=== PATIENT | male | born 1935 | race African-American/Black ===

== ENCOUNTER 2017-08-05 21:27 | Inpatient (IN) | payer OTHER, MEDICARE ==
[~2017-08-05] VITALS: Ht 193 cm; Wt 137.9 kg
[~2017-08-05 21:27] MED LIST: ALDA25TA PO; FURO1TAB93 PO
[2017-08-05 21:29] VITALS: BP 135/60; PULSE 86; RESP 16; TEMP 98.4; O2SAT 96
[2017-08-05 22:40] VITALS: BP 137/63
[2017-08-05] MEDS ORDERED: LISI10TA3 PO (22:47)
[2017-08-05] MEDS ORDERED: SPIR25 PO (22:47)
[2017-08-05] MEDS ORDERED: FURO40TA PO (22:47)
--- NOTE | 2017-08-05 23:08 | PD ---
HPI Chief Complaint: General Weakness Time Seen by Provider: 22:38 Travel History International Travel<30 days: No Contact w/Intl Traveler<30days: No Traveled to known affect area: No History of Present Illness HPI The patient is an 82 year old male who presents to the [facility] emergency department with a history of chronic swelling of the lower extremities and recurrent areas of ulceration in bilateral lower extremities that he reports it been present for the last 3-4 months. His family member reports that he only mentions that he has wounds when they become infected. Yesterday he began to complain of increased pain, swelling, and drainage from the wounds. Yesterday he began to have a subjective fever and chills. He has had increased generalized weakness associated with this. He reports that over the last 3-4 days he has also been experiencing diarrhea approximately 2 times per day. He denies having any nausea or vomiting. In review of systems he denies having any chest pain or chest pressure. He does report having chronic dyspnea on exertion. He denies having any prior history of respiratory disease diagnosed. He reports that he quit smoking 30 years of age. Otherwise, review of systems , he denies any recent cough or congestion, neck pain, abdominal pain, or neurologic symptoms. The patient additionally reports on review of systems that he has had urinary frequency and urgency over the last 4 days. He denies having any dysuria. He denies having any new back pain. 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 Arthritis: Yes (RIGHT KNEE) Autoimmune Disease: No Heart Rhythm Problems: No Cancer: No Cardiovascular Problems: Yes High Cholesterol: No Chemotherapy: No Chest Pain: No Congestive Heart Failure: No COPD: Yes Cerebrovascular Accident: No Diabetes: No Diminished Hearing: No Endocrine: No GERD: No Genitourinary: Yes (MILD INCONTINENCE) Hiatal Hernia: No Hypertension: Yes Immune Disorder: No Kidney Stones: No Musculoskeletal: Yes Neurologic: No Psychiatric: No Reproductive: No Respiratory: No Immunizations Current: No Migraines: No Radiation Therapy: No Renal Failure: No Seizures: No Sickle Cell Disease: No Thyroid Disease: No Ulcer: No Tetanus Vaccination: Unknown Influenza Vaccination: No Past Surgical History Narrative Surgical The patient's past surgical history is significant for dental extractions, prostate surgery related to prostate cancer, appendectomy, left knee surgery, back surgery. Abdominal Surgery: Yes (APPENDIX REMOVED) AICD: No Appendectomy: Yes Arteriovenous Shunt: No Cardiac Surgery: No Ear Surgery: No Endocrine Surgery: No Eye Surgery: No Genitourinary Surgery: Yes (PROSTATE MASS REMOVAL) Gynecologic Surgery: No Insulin Pump: No Joint Replacement: No Oral Surgery: Yes (DENTURES) Pacemaker: No Thoracic Surgery: No Social History Alcohol Use: No Tobacco Use: No Substance Use: No Allergies-Medications (Allergen,Severity, Reaction): Coded Allergies: No Known Allergies (Unverified , 08/05/17) Reported Meds & Prescriptions Reported Meds & Active Scripts Active Reported Lisinopril 10 Mg Tab 10 Mg PO DAILY Furosemide 40 Mg Tab 40 Mg PO DAILY Aldactone (Spironolactone) 25 Mg Tab 25 Mg PO DAILY Review of Systems Except as stated in HPI: all other systems reviewed are Neg General / Constitutional: Positive: Fever, Chills Eyes: No: Visual changes HENT: No: Headaches, Congestion Cardiovascular: Positive: Dyspnea on exertion, Edema, No: Chest Pain or Discomfort Respiratory: Positive: Shortness of Breath, No: Cough Gastrointestinal: Positive: Diarrhea, No: Abdominal Pain Genitourinary: Positive: Urgency, Frequency, No: Dysuria, Flank Pain Musculoskeletal: No: Pain Skin: Positive Rash Neurologic: Positive: Weakness (generalized weakness), No: Focal Abnormalities , Change in Mentation, Slurred Speech, Sensory Disturbance Psychiatric: No: Depression Endocrine: No: Polydipsia Hematologic/Lymphatic: No: Easy Bruising Physical Exam Narrative General: The patient is well-developed well-nourished male in no acute distress Head and Neck exam: Head is normocephalic atraumatic. Eyes: EOMI, pupils are equal round and reactive to light. Nose: Midline septum with pink mucous membranes Mouth: Dentition unremarkable. Moist mucus membranes. Posterior oropharynx is not erythematous. No tonsillar hypertrophy. Uvula midline. Airway patent. Neck: No palpable lymphadenopathy. No nuchal rigidity. No thyromegaly. Cardiovascular: Sinus tachycardia with a rate of 106 without murmurs, gallops, or rubs. No pulse deficit to the extremities on simultaneous auscultation and palpation of his radial artery. Lungs: Clear to auscultation bilaterally. No wheezes, rhonchi, or rales. Abdomen: Soft, without tenderness to palpation in all 4 quadrants of the abdomen. No guarding, rebound, or rigidity. Normal bowel sounds are audible. No tenderness on palpation of McBurney's point. Extremities: No clubbing or cyanosis, patient has 2+ pitting edema bilateral lower extremities. 2+ pulses in all 4 extremities. The patient is noted to have bandages in place on bilateral lower extremities below the knee. The bandages were removed. The patient is noted to have areas of ulceration along the lateral and posterior aspect of the right leg with some clear drainage. The patient on examination of the left lower extremity is noted to have an area of ulceration with green drainage and a foul odor along the medial aspect of the lower leg. The right lower extremity is noted to have increased swelling compared to the left with some extending erythema proximally consistent with a cellulitis. Back: No spinous process tenderness to palpation. No costovertebral angle tenderness to palpation. Neurologic Exam: Grossly nonfocal. Skin Exam: The patient's skin is warm and dry. Data Data Last Documented VS Vital Signs Date Time Temp Pulse Resp B/P (MAP) Pulse Ox O2 Delivery O2 Flow Rate FiO2 08/05/17 22:40 137/63 (87) 08/05/17 22:40 107 21 96 Room Air 08/05/17 21:29 98.4 Orders Orders Electrocardiogram (08/05/17 22:41) Complete Blood Count With Diff (08/05/17 22:41) Comprehensive Metabolic Panel (08/05/17 22:41) Creatine Kinase (Cpk) (08/05/17 22:41) Ckmb (Isoenzyme) Profile (08/05/17 22:41) Troponin I (08/05/17 22:41) B-Type Natriuretic Peptide (08/05/17 22:41) Prothrombin Time / Inr (Pt) (08/05/17 22:41) Act Partial Throm Time (Ptt) (08/05/17 22:41) Blood Culture (08/05/17 22:41) C-Reactive Protein (Crp) (08/05/17 22:41) Lipase (08/05/17 22:41) Urinalysis - C+S If Indicated (08/05/17 22:41) Chest, Single Ap (08/05/17 22:41) Iv Access Insert/Monitor (08/05/17 22:41) Ecg Monitoring (08/05/17 22:41) Oximetry (08/05/17 22:41) Lactic Acid Sepsis Protocol (08/05/17 22:41) Wound Culture And Gram Stain (08/05/17 23:09) Wound Culture And Gram Stain (08/05/17 23:09) CKMB (08/05/17 23:00) CKMB% (08/05/17 23:00) Sodium Chlor 0.9% 1000 Ml Inj (Ns 1000 M (08/06/17 00:45) Piperacil-Tazo 3.375 Gm Premix (Zosyn 3. (08/06/17 00:45) Vancomycin Inj (Vancomycin Inj) (08/06/17 00:45) Admit Order (Ed Use Only) (08/06/17 00:42) Labs Laboratory Tests Test 08/05/17 23:00 White Blood Count 14.2 TH/MM3 Red Blood Count 4.23 MIL/MM3 Hemoglobin 11.8 GM/DL Hematocrit 35.7 % Mean Corpuscular Volume 84.4 FL Mean Corpuscular Hemoglobin 27.8 PG Mean Corpuscular Hemoglobin Concent 33.0 % Red Cell Distribution Width 16.5 % Platelet Count 173 TH/MM3 Mean Platelet Volume 8.3 FL CBC Comment AUTO DIFF Differential Total Cells Counted 100 Neutrophils % (Manual) 75 % Band Neutrophils % 6 % Lymphocytes % 8 % Monocytes % 9 % Neutrophils # (Manual) 11.8 TH/MM3 Metamyelocytes 2 % Differential Comment FINAL DIFF MANUAL Atypical Lymphocytes % Toxic Vacuolation PRESENT Platelet Estimate NORMAL Platelet Morphology Comment NORMAL Red Cell Morphology Comment NORMAL Prothrombin Time 13.2 SEC Prothromb Time International Ratio 1.2 RATIO Activated Partial Thromboplast Time 38.1 SEC Blood Urea Nitrogen 20 MG/DL Creatinine 2.14 MG/DL Random Glucose 129 MG/DL Total Protein 8.4 GM/DL Albumin 2.8 GM/DL Calcium Level 8.8 MG/DL Alkaline Phosphatase 100 U/L Aspartate Amino Transf (AST/SGOT) 37 U/L Alanine Aminotransferase (ALT/SGPT) 23 U/L Total Bilirubin 2.9 MG/DL Sodium Level 134 MEQ/L Potassium Level 3.7 MEQ/L Chloride Level 99 MEQ/L Carbon Dioxide Level 25.0 MEQ/L Anion Gap 10 MEQ/L Estimat Glomerular Filtration Rate 36 ML/MIN Lactic Acid Level 1.9 mmol/L Total Creatine Kinase 502 U/L Creatine Kinase MB 4.0 NG/ML Creatine Kinase MB % 0.8 % Troponin I LESS THAN 0.02 NG/ML C-Reactive Protein 24.00 MG/DL B-Type Natriuretic Peptide 177 PG/ML Lipase 78 U/L MDM Medical Decision Making Medical Screen Exam Complete: Yes Emergency Medical Condition: Yes Medical Record Reviewed: Yes Interpretation(s) Last Impressions Lower Extremity Ultrasound 08/06/17 0000 Signed Impressions: Service Date/Time: Sunday, August 06, 2017 17:41 - CONCLUSION: No DVT is identified within the right lower extremity. Quintin Bro MD Chest X-Ray 08/05/17 2241 Signed Impressions: Service Date/Time: Saturday, August 05, 2017 22:58 - CONCLUSION: 1. Minimal basilar atelectasis. Theodore Rivera MD Differential Diagnosis Cellulitis, versus erysipelas, versus infected ulcers, versus sepsis Narrative Course During the course of the patients emergency department visit, the patients history, examination, and differential diagnosis were reviewed with the patient. The patient had IV access obtained and blood work sent for analysis. The patient was placed on a operations general agent with oximetry and blood pressure monitoring. The patient had an ECG done on arrival that shows a sinus tachycardia rate of 103, incomplete right bundle branch block, QRS duration is 104 ms, QTC 370 ms, no acute ST segment elevation or depression. A Workup ensued to evaluate for possible underlying sepsis related cellulitis. The patient was initially provided Zosyn 3.375 g IV, vancomycin 1 g IV, normal saline 1 L IV fluid bolus was started. The patients laboratory studies were reviewed and remarkable for a white count of 14.2, hemoglobin 11.8, platelets 173 with 75 neutrophils, bands 6, toxic vacuolation present. CMP is remarkable for a sodium of 134, BUN 20, creatinine 2.14 which is compared to previous values last done in 2012 and appears to be acutely worsened, CPK 502, MB percent 0.8, troponin I less than 0.02, C- reactive protein elevated at 24, lipase 78, BNP 177. Given the elevated BNP the patient was judiciously hydrated and stated being given the usual 30 mL per KG IV fluid bolus due to a concern for fluid overload. PT 13.2, PTT 38.1, urinalysis is remarkable for 100 protein moderate occult blood small bilirubin 7 RBCs and rare uric acid crystals. Radiology studies were reviewed and remarkable for a Chest x-ray showed minimal Basilar atelectasis. Sepsis Criteria SIRS Criteria (2 or more): Heart rate over 90, WBC > 88696, < 4000 or > 10% bands Sepsis Criteria (SIRS+source): Infect source susp/known Criteria Outcome: Meets SIRS criteria, Meets sepsis criteria Physician Communication Physician Communication The patient's case was discussed with Dr. Nicholson who did agree to admit the patient for further evaluation and treatment at this time. Diagnosis Primary Impression: Recurrent cellulitis of lower extremity Additional Impression: Acute kidney injury superimposed on chronic kidney disease Admitting Information Admitting Physician Requests: Admit Zahraa Pickering MD Aug 05, 2017 23:08
--- NOTE | 2017-08-05 23:12 | RADRPT ---
EXAM DATE/TIME: 08/05/2017 22:58 [facility] COMPARISON: No previous studies available for comparison. INDICATIONS : Short of breath, chest pain. MEDICAL HISTORY : None. SURGICAL HISTORY : None. ENCOUNTER: Initial ACUITY: 1 day PAIN SCORE: 0/10 LOCATION: Bilateral chest FINDINGS: A single view of the chest demonstrates minimal basilar opacity most characteristic of atelectasis. N o effusion. No pneumothorax. No focal consolidation. CONCLUSION: 1. Minimal basilar atelectasis. Theodore Rivera MD on August 05, 2017 at 23:08 Board Certified Radiologist. This report was verified electronically.
[2017-08-05 23:17] LABS: HEMATOCRIT 35.7 % (39.0-51.0); HEMO FLAGS AUTO DIFF; MEAN CELL VOLUME 84.4 FL (80.0-100.0); MEAN CORPUSCULAR HEMOGLOBIN 27.8 PG (27.0-34.0); PLATELET COUNT 173 TH/MM3 (150-450); RED BLOOD COUNT 4.23 MIL/MM3 (4.50-5.90); RED CELL DISTRIBUTION WIDTH 16.5 % (11.6-17.2); WHITE BLOOD COUNT 14.2 TH/MM3 (4.0-11.0)
[2017-08-05 23:27] LABS: APTT (PATIENT) 38.1 SEC (24.3-30.1); INTERNATIONAL NORMALIZED RATIO 1.2 RATIO; PROTHROMBIN TIME - PATIENT 13.2 SEC (9.8-11.6)
[2017-08-05 23:31] LABS: ANION GAP 10 MEQ/L (5-15); AST (GOT) 37 U/L (15-37); BLOOD UREA NITROGEN 20 MG/DL (7-18); CHLORIDE 99 MEQ/L (98-107); GLOMERULAR FILTRATION RATE 36 ML/MIN (>89); POTASSIUM 3.7 MEQ/L (3.5-5.1); SODIUM (NA) 134 MEQ/L (136-145)
[2017-08-05 23:32] LABS: ALT (GPT) 23 U/L (12-78)
[2017-08-05 23:39] LABS: ALKALINE PHOSPHATASE 100 U/L (45-117); CREATINE KINASE 502 U/L (39-308); TOTAL BILIRUBIN ADULT 2.9 MG/DL (0.2-1.0)
[2017-08-05 23:54] LABS: BANDS 6 % (0-6); METAMYELOCYTES 2 % (0-1); NEUTROPHIL # MANUAL DIFF 11.8 TH/MM3 (1.8-7.7); PLATELET ESTIMATE SMEAR NORMAL (NORMAL); PLATELET MORPHOLOGY NORMAL (NORMAL); POLYS (SEG NEUTROPHILS) 75 % (16-70); SCAN/DIFF FINAL DIFF MANUAL; WBC DIFF SAMPLE 100
[2017-08-05 23:55] LABS: TOXIC VACUOLATION PRESENT (NONE SEEN)
[2017-08-06] VITALS (9 sets, daily range): BP systolic 118–148; BP diastolic 56–65; PULSE 85–104; RESP 16–20; TEMP 98.1–99.4; O2SAT 93–100
[2017-08-06] MEDS ORDERED: SODIUM CHLOR 0.9% 1000 ML INJ 1,000 ML IV ONE (00:45)
[2017-08-06] MEDS ORDERED: PIPERACIL-TAZO 3.375 GM PREMIX 50 ML IV ONE (00:45)
[2017-08-06] MEDS ORDERED: VANCOMYCIN INJ 1,000 MG in SODIUM CHLOR 0.9% 250 ML INJ 250 ML IV ONE ×2 (00:45→02:00)
[2017-08-06] MEDS ORDERED: SODIUM CHLORIDE 0.9% FLUSH 10 ML FLUSH IV FLUSH PRN (01:00)
[2017-08-06] MEDS ORDERED: LACTULOSE SYRUP 20 GM/30 ML CUP PO PRN (01:00)
[2017-08-06] MEDS ORDERED: NALOXONE HCL 0.4 MG/ML AMP IV PUSH PRN (01:00)
[2017-08-06] MEDS ORDERED: ONDANSETRON HCL 4 MG/2 ML VIAL IVP PRN (01:00)
[2017-08-06] MEDS ORDERED: BISACODYL 10 MG SUPP RECTAL PRN (01:00)
[2017-08-06] MEDS ORDERED: SENNOSIDES 8.6 MG TAB PO PRN (01:00)
[2017-08-06] MEDS ORDERED: ACETAMINOPHEN 325 MG TAB PO PRN (01:00)
[2017-08-06] MEDS ORDERED: MAGNESIUM HYDROXIDE SUSP 30 ML CUP PO PRN (01:00)
[2017-08-06] MEDS ORDERED: Vancomycin Consult Pharmacy 1 EA OTHER SCH (01:15)
--- NOTE | 2017-08-06 03:23 | HHI.HP ---
[facility] Unknown Admission Diagnosis Cellulitis with infected skin ulcers Diagnoses: Chief Complaint: Lower extremity infection Travel History International Travel<30 Days: No Contact w/Intl Traveler <30 Da: No Traveled to Known Affected Are: No History of Present Illness 82-year-old male with a medical history significant for osteoarthritis, prostate cancer, hypertension, chronic lower extremity edema presents with complaint of infection involving bilateral lower extremities. Patient is a very poor historian and not able to elaborate on the history. He reports he normally gets these infections once a year. He does not follow with a primary care physician. He reports that they just have been getting worse. He is experiencing significant pain with walking. There has been erythema and warmth. Subjective fevers at home. He states his legs have been swelling intermittently. Patient denies shortness of breath or chest pain. Review of Systems Constitutional: COMPLAINS OF: Fever, Chills Respiratory: DENIES: Cough, Shortness of breath Gastrointestinal: DENIES: Abdominal pain, Nausea, Vomiting Musculoskeletal: COMPLAINS OF: Joint pain, Stiffness Integumentary: COMPLAINS OF: Abnormal pigmentation, Rash Except as stated in HPI: all other systems reviewed are Neg Past Family Social History Past Medical History Hypertension Osteoarthritis Prostate cancer Bilateral chronic lower extremity edema/venous stasis changes. Past Surgical History Appendectomy Prostate cancer surgery Left knee surgery Back surgery Reported Medications Reported Meds & Active Scripts Active Reported Lisinopril 10 Mg Tab 10 Mg PO DAILY Furosemide 40 Mg Tab 40 Mg PO DAILY Aldactone (Spironolactone) 25 Mg Tab 25 Mg PO DAILY Allergies: Coded Allergies: No Known Allergies (Unverified , 08/05/17) Family History Mother from complications of pancreatic cancer Father had lung cancer Physical Exam Vital Signs Vital Signs Date Time Temp Pulse Resp B/P (MAP) Pulse Ox O2 Delivery O2 Flow Rate FiO2 08/06/17 03:17 08/06/17 03:00 85 16 148/65 (92) 95 Room Air 08/06/17 02:00 99 18 128/60 (82) 95 Room Air 08/05/17 22:40 137/63 (87) 08/05/17 22:40 107 21 96 Room Air 08/05/17 21:29 98.4 86 16 135/60 (85) 96 Room Air Physical Exam GENERAL: This is a well-nourished, well-developed patient, in no apparent distress. SKIN: Bilateral lower extremity venous stasis changes. On the right lower extremity days extending erythema and warmth. Multiple shallow ulcers involving bilateral lower extremities. No purulent discharge. Bilateral feet with extensive callus and chronic changes. HEAD: Atraumatic. Normocephalic. EYES: Pupils equal round and reactive. Extraocular motions intact. No scleral icterus. No injection or drainage. ENT: Nose without bleeding, purulent drainage or septal hematoma. Throat without erythema, tonsillar hypertrophy or exudate. Uvula midline. Airway patent. NECK: Trachea midline. No JVD or lymphadenopathy. Supple, nontender, no meningeal signs. CARDIOVASCULAR: Regular rate and rhythm without murmurs, gallops, or rubs. RESPIRATORY: Clear to auscultation. Breath sounds equal bilaterally. No wheezes , rales, or rhonchi. GASTROINTESTINAL: Abdomen soft, non-tender, nondistended. No hepato-splenomegaly , or palpable masses. No guarding. MUSCULOSKELETAL: Extremities without clubbing, cyanosis, or edema. No joint tenderness, effusion, or edema noted. No calf tenderness. Negative Homans sign bilaterally. NEUROLOGICAL: Awake and alert. Normal speech. Laboratory Laboratory Tests Test 08/05/17 23:00 White Blood Count 14.2 Red Blood Count 4.23 Hemoglobin 11.8 Hematocrit 35.7 Mean Corpuscular Volume 84.4 Mean Corpuscular Hemoglobin 27.8 Mean Corpuscular Hemoglobin Concent 33.0 Red Cell Distribution Width 16.5 Platelet Count 173 Mean Platelet Volume 8.3 CBC Comment AUTO DIFF Differential Total Cells Counted 100 Neutrophils % (Manual) 75 Band Neutrophils % 6 Lymphocytes % 8 Monocytes % 9 Neutrophils # (Manual) 11.8 Metamyelocytes 2 Differential Comment FINAL DIFF MANUAL Atypical Lymphocytes Toxic Vacuolation PRESENT Platelet Estimate NORMAL Platelet Morphology Comment NORMAL Red Cell Morphology Comment NORMAL Prothrombin Time 13.2 Prothromb Time International Ratio 1.2 Activated Partial Thromboplast Time 38.1 Blood Urea Nitrogen 20 Creatinine 2.14 Random Glucose 129 Total Protein 8.4 Albumin 2.8 Calcium Level 8.8 Alkaline Phosphatase 100 Aspartate Amino Transf (AST/SGOT) 37 Alanine Aminotransferase (ALT/SGPT) 23 Total Bilirubin 2.9 Sodium Level 134 Potassium Level 3.7 Chloride Level 99 Carbon Dioxide Level 25.0 Anion Gap 10 Estimat Glomerular Filtration Rate 36 Lactic Acid Level 1.9 Total Creatine Kinase 502 Creatine Kinase MB 4.0 Creatine Kinase MB % 0.8 Troponin I LESS THAN 0.02 C-Reactive Protein 24.00 B-Type Natriuretic Peptide 177 Lipase 78 Date/Time Source Procedure Growth Status 08/05/17 23:00 Blood Peripheral Aerobic Blood Culture Pending Received 08/05/17 23:00 Blood Peripheral Anaerobic Blood Culture Pending Received 08/05/17 22:50 Wound Skin Gram Stain Pending Received 08/05/17 22:50 Wound Skin Wound Culture Pending Received Result Diagram: 08/[id number] Imaging Last Impressions Chest X-Ray 08/05/[id number] Signed Impressions: Service Date/Time: Saturday, August 05, 2017 22:58 - CONCLUSION: 1. Minimal basilar atelectasis. Theodore Rivera MD [place] VTE Risk Assessment Caprini VTE Risk Assessment: Mod/High Risk (score >= 2) Caprini Risk Assessment Model Point Value = 1 Point Value = 2 Point Value = 3 Point Value = 5 Age 41-60 Minor surgery BMI > 25 kg/m2 Swollen legs Varicose veins or History of unexplained or recurrent spontaneous Oral contraceptives or hormone replacement Sepsis (< 1 month) Serious lung disease, including pneumonia (< 1 month) Abnormal pulmonary function Acute myocardial infarction Congestive heart failure (< 1 month) History of inflammatory bowel disease Medical patient at bed rest Age 61-74 Arthroscopic surgery Major open surgery (> 45 min) Laparoscopic surgery (> 45 min) Malignancy Confined to bed (> 72 hours) Immobilizing plaster cast Central venous access Age >= 75 History of VTE Family history of VTE Factor V Leiden Prothrombin [id number] Lupus anticoagulant Anticardiolipin antibodies Elevated serum homocysteine Heparin-induced thrombocytopenia Other congenital or acquired thrombophilia Stroke (< 1 month) Elective arthroplasty Hip, pelvis, or leg fracture Acute spinal cord injury (< 1 month) Prophylaxis Regimen Total Risk Factor Score Risk Level Prophylaxis Regimen 0-1 Low Early ambulation 2 Moderate Order ONE of the following: *Sequential Compression Device (SCD) *Heparin 5000 units SQ BID 3-4 Higher Order ONE of the following medications: *Heparin 5000 units SQ TID *Enoxaparin/Lovenox 40 mg SQ daily (WT < 150 kg, CrCl > 30 mL/min) *Enoxaparin/Lovenox 30 mg SQ daily (WT < 150 kg, CrCl > 10-29 mL/min) *Enoxaparin/Lovenox 30 mg SQ BID (WT < 150 kg, CrCl > 30 mL/min) AND/OR *Sequential Compression Device (SCD) 5 or more Highest Order ONE of the following medications: *Heparin 5000 units SQ TID (Preferred with Epidurals) *Enoxaparin/Lovenox 40 mg SQ daily (WT < 150 kg, CrCl > 30 mL/min) *Enoxaparin/Lovenox 30 mg SQ daily (WT < 150 kg, CrCl > 10-29 mL/min) *Enoxaparin/Lovenox 30 mg SQ BID (WT < 150 kg, CrCl > 30 mL/min) AND *Sequential Compression Device (SCD) Assessment and Plan Problem List: (1) Venous stasis dermatitis of both lower extremities ICD Code: I87.2 - Venous insufficiency (chronic) (peripheral) (2) Recurrent cellulitis of lower extremity ICD Code: L03.119 - Cellulitis of unspecified part of limb (3) Acute kidney injury superimposed on chronic kidney disease ICD Code: N17.9 - Acute kidney failure, unspecified; N18.9 - Chronic kidney disease, unspecified Assessment and Plan 82-year-old male admitted with: Recurrent bilateral lower extremity cellulitis: The patient has significant venous stasis and has multiple nondraining skin ulcers. He does not follow with a regular physician. - Continue vancomycin and Zosyn. Follow cultures. - Consult wound care. The patient needs adequate outpatient follow-up to ensure the wounds are healing. Acute on chronic renal insufficiency: May be prerenal azotemia. - IV fluids ordered. - Follow BMP in a.m. Hypertension: Blood pressure acceptable currently. Hold lisinopril, spironolactone, and Lasix. Monitor blood pressure and resume antihypertensives as indicated. GI prophylaxis: Stool softener PRN constipation. DVT PPx: Heparin Depending on how the patient does overnight. Wound care recommendations, he can likely be discharged tomorrow on oral antibiotics with outpatient follow-up in the wound care clinic. Discussed Condition With Dr. Pickering, ED physician. Bonifacio Nicholson MD Aug 06, 2017 03:23
[2017-08-06 04:05] LABS: BLOOD, URINE MOD (NEG); COMMENT (UR) CULT NOT INDICATED; CULTURE IF INDICATED CULT NOT INDICATED; GLUCOSE,URINE NEG (NEG); HYALINE CAST, URINE 19 /lpf (RARE); KETONE, URINE NEG (NEG); MUCUS URINE FEW /lpf (OCC); NITRITE,URINE NEG (NEG); PH, URINE 5.5 (5.0-8.5); SQUAMOUS EPITHELIAL CELL URINE <1 /hpf (0-5); URINE COLOR YELLOW (YELLW/STRAW)
[2017-08-06 04:10] LABS: URIC ACID CRYSTALS, URINE RARE /hpf
[2017-08-06 05:19] LABS: HEMATOCRIT 33.9 % (39.0-51.0); MEAN CELL VOLUME 84.8 FL (80.0-100.0); MEAN CORPUSCULAR HEMOGLOBIN 27.6 PG (27.0-34.0); MEAN CORPUSCULAR HGB CONC 32.6 % (32.0-36.0); PLATELET COUNT 156 TH/MM3 (150-450); RED BLOOD COUNT 3.99 MIL/MM3 (4.50-5.90); RED CELL DISTRIBUTION WIDTH 16.7 % (11.6-17.2)
[2017-08-06 05:23] LABS: HEMO FLAGS AUTO DIFF
[2017-08-06 05:37] LABS: BICARBONATE 25.6 MEQ/L (21.0-32.0)
[2017-08-06 07:26] LABS: BANDS 1 % (0-6); NEUTROPHIL # MANUAL DIFF 12.1 TH/MM3 (1.8-7.7); POLYS (SEG NEUTROPHILS) 92 % (16-70); WBC DIFF SAMPLE 100
[2017-08-06 07:27] LABS: TOXIC VACUOLATION PRESENT (NONE SEEN)
[2017-08-06 07:29] LABS: OVALOCYTES 1+ (NORMAL); SCAN/DIFF FINAL DIFF MANUAL
[2017-08-06] MEDS: PIPERACIL-TAZO 3.375 GM PREMIX 50 ML IV SCH ×2 (08:09→16:07)
[2017-08-06] MEDS: HEPARIN SODIUM - SQ 10,000 UNITS/ML VIAL SQ SCH (08:09)
[2017-08-06] MEDS: SODIUM CHLORIDE 0.9% FLUSH 10 ML FLUSH IV FLUSH SCH (08:09)
[2017-08-06] MEDS: SODIUM CHLOR 0.9% 1000 ML INJ 1,000 ML IV SCH (12:43)
--- NOTE | 2017-08-06 13:04 | HHI.PR ---
Subjective Remarks Follow-up for right lower extremity cellulitis. RN at bedside. The patient states his right lower extremity has been having worsening swelling and pain recently, still has some discomfort today. He has been getting home wound care for his lower extremities. He states he had a recent culture done which showed MRSA. He has been having poor appetite and nausea today, no vomiting or abdominal pain. Objective Vitals Vital Signs Date Time Temp Pulse Resp B/P (MAP) Pulse Ox O2 Delivery O2 Flow Rate FiO2 08/06/17 10:58 98.7 99 16 139/57 (84) 94 08/06/17 08:54 99.1 100 18 126/57 (80) 97 08/06/17 08:19 85 132/60 (84) 08/06/17 03:55 98.4 94 20 118/59 (78) 100 08/06/17 03:17 08/06/17 03:00 85 16 148/65 (92) 95 Room Air 08/06/17 02:00 99 18 128/60 (82) 95 Room Air 08/05/17 22:40 137/63 (87) 08/05/17 22:40 107 21 96 Room Air 08/05/17 21:29 98.4 86 16 135/60 (85) 96 Room Air I/O 08/05/17 08/05/17 08/05/17 08/06/17 08/06/17 08/06/17 07:00 15:00 23:00 07:00 15:00 23:00 Intake Total 1350 ml Balance 1350 ml Intake IV Total 1350 ml Result Diagram: 08/06/17 0450 08/06/17 0450 Imaging Last Impressions Chest X-Ray 08/05/17 2241 Signed Impressions: Service Date/Time: Saturday, August 05, 2017 22:58 - CONCLUSION: 1. Minimal basilar atelectasis. Theodore Rivera MD Objective Remarks GENERAL: Well-developed well-nourished. In no acute distress. SKIN: Warm and dry. Bilateral lower extremity venous stasis changes, dry skin with cracking and dry ulcerations. Cellulitis as below. HEENT: Normocephalic. Pupils equal and round. Mucous membranes pink and moist. CARDIOVASCULAR: Regular rate and rhythm. No murmur appreciated. RESPIRATORY: No accessory muscle use. Clear to auscultation. Breath sounds equal bilaterally. GASTROINTESTINAL: Abdomen soft, non-tender, nondistended. Bowel sounds x4. MUSCULOSKELETAL: Right lower extremity much more swollen than the left with erythema and warmth. Right leg calf TTP. NEUROLOGICAL: Awake and alert. No focal neurological deficits. Moves upper and lower extremities spontaneously. Normal speech. PSYCHIATRIC: Appropriate mood and affect; insight and judgment normal. A/P Problem List: (1) Venous stasis dermatitis of both lower extremities ICD Code: I87.2 - Venous insufficiency (chronic) (peripheral) Status: Chronic (2) Recurrent cellulitis of lower extremity ICD Code: L03.119 - Cellulitis of unspecified part of limb Status: Acute (3) Acute kidney injury superimposed on chronic kidney disease ICD Code: N17.9 - Acute kidney failure, unspecified; N18.9 - Chronic kidney disease, unspecified Status: Acute Assessment and Plan 82-year-old male admitted with: Acute right lower extremity cellulitis on chronic bilateral lymphedema. Possible sepsis: The patient has significant venous stasis and has multiple nondraining skin ulcers. Reports outpatient wound culture with MRSA. Reviewed: WBC 14.2/13.0. Afebrile. Tachycardic. Previous cultures from 2011 showed pansensitive MSSA and pseudomonas. - Continue vancomycin and Zosyn. Follow wound and blood cultures. - Consult wound care. - Consult ID - Check Doppler to rule out DVT - Follow up CBC Acute on chronic renal insufficiency: Creatinine 2.14, previously 1.33 on . Received 1 L IVF and creatinine still 2.18. Probably secondary to infection and overdiuresis. - Resume IVF - Hold medications as below - Follow BMP in a.m. Hypertension: Blood pressure acceptable currently. Hold lisinopril, spironolactone, and Lasix with TIP. - Monitor blood pressure and resume antihypertensives as indicated. GI prophylaxis: Stool softener PRN constipation. DVT prophylaxis: Castillo Valencia Aug 06, 2017 13:04
--- NOTE | 2017-08-06 14:16 | EKG ---
Date Performed: 08/05/2017 Time Performed: 23:21:35 PTAGE: 82 years EKG: SINUS TACHYCARDIA POSSIBLE LEFT ATRIAL ENLARGEMENT INCOMPLETE RIGHT BUNDLE BRANCH BLOCK ABN ORMAL RHYTHM ECG Compared to prior tracing no significant change PREVIOUS TRACING : 06/12/2012 09.58 DOCTOR: Dannie Garcia Interpretating Date/Time 08/06/2017 14:15:03
--- NOTE | 2017-08-06 18:15 | RADRPT ---
EXAM DATE/TIME: 08/06/2017 17:41 [facility] COMPARISON: No previous studies available for comparison. INDICATIONS : Right leg pain and swelling. MEDICAL HISTORY : Hypertension. Chronic obstructive pulmonary disease. Arthritis. Chronic lower extremity edema with recurrent ulceration and cellulitis. Prostate cancer. Measles. SURGICAL HISTORY : Appendectomy. Dentures. Back surgery. Hand surgery. Left knee surgery. Prostate mass removed ENCOUNTER: Initial ACUITY: 4 - 6 months PAIN SCORE: 5/10 LOCATION: Right leg. TECHNIQUE: Venous ultrasound of the leg was performed from the inguinal ligament to the proximal calf. Real-qing e, color Doppler and spectral tracing, compression and augmentation techniques were used. FINDINGS: There is normal compressibility of the deep venous system from the inguinal region to the proximal ca lf. No echogenic clot is seen in the lumen of the common femoral, femoral, popliteal, and posterior tibial veins. There is a normal response of the venous system to proximal and distal augmentation an d respiration. There are multiple lymph nodes identified in the right inguinal region. CONCLUSION: No DVT is identified within the right lower extremity. Quintin Bro MD on August 06, 2017 at 18:13 Board Certified Radiologist. This report was verified electronically.
[2017-08-07] VITALS (7 sets, daily range): BP systolic 121–151; BP diastolic 60–71; PULSE 87–98; RESP 16–20; TEMP 97.6–98.9; O2SAT 91–96
[2017-08-07] MEDS: PIPERACIL-TAZO 3.375 GM PREMIX 50 ML IV SCH ×4 (02:06→23:21)
[2017-08-07] MEDS: SODIUM CHLORIDE 0.9% FLUSH 10 ML FLUSH IV FLUSH SCH ×3 (02:06→20:09)
[2017-08-07] MEDS: HEPARIN SODIUM - SQ 10,000 UNITS/ML VIAL SQ SCH ×3 (02:07→20:09)
[2017-08-07] MEDS: SODIUM CHLOR 0.9% 1000 ML INJ 1,000 ML IV SCH ×2 (02:07→03:38)
[2017-08-07 08:27] LABS: HEMATOCRIT 33.5 % (39.0-51.0); MEAN CELL VOLUME 84.8 FL (80.0-100.0); MEAN CORPUSCULAR HEMOGLOBIN 27.8 PG (27.0-34.0); MEAN CORPUSCULAR HGB CONC 32.8 % (32.0-36.0); PLATELET COUNT 161 TH/MM3 (150-450); RED BLOOD COUNT 3.96 MIL/MM3 (4.50-5.90); RED CELL DISTRIBUTION WIDTH 16.8 % (11.6-17.2); WHITE BLOOD COUNT 15.4 TH/MM3 (4.0-11.0)
[2017-08-07 08:31] LABS: HEMO FLAGS AUTO DIFF
[2017-08-07 08:49] LABS: BICARBONATE 27.3 MEQ/L (21.0-32.0); POTASSIUM 3.9 MEQ/L (3.5-5.1)
--- NOTE | 2017-08-07 09:04 | HHI.PR ---
Subjective Remarks The patient says that he has been taking diuretics. He also has been drinking a lot of water. He has not been using his compression stockings regularly. He has been following up with his primary care. He would like something for pain control. Family at the bedside. Objective Vitals Vital Signs Date Time Temp Pulse Resp B/P (MAP) Pulse Ox O2 Delivery O2 Flow Rate FiO2 08/07/17 08:16 98.5 90 20 121/60 (80) 94 08/07/17 04:00 98.1 96 16 122/61 (81) 95 08/07/17 00:00 98.9 98 18 132/63 (86) 95 08/06/17 22:00 98.1 98 19 133/60 (84) 93 08/06/17 20:00 103 08/06/17 17:24 99.4 104 18 123/56 (78) 96 08/06/17 10:58 98.7 99 16 139/57 (84) 94 I/O 08/06/17 08/06/17 08/06/17 08/07/17 08/07/17 08/07/17 07:00 15:00 23:00 07:00 15:00 23:00 Intake Total 1350 ml 480 ml 2240 ml Output Total 850 ml Balance 1350 ml 480 ml 1390 ml Intake Oral 480 ml 940 ml IV Total 1350 ml 1300 ml Output Urine Total 850 ml # Voids 2 3 # Bowel Movements 2 0 Result Diagram: 08/07/17 0745 08/07/17 0745 Imaging Last Impressions Lower Extremity Ultrasound 08/06/17 0000 Signed Impressions: Service Date/Time: Sunday, August 06, 2017 17:41 - CONCLUSION: No DVT is identified within the right lower extremity. Quintin Bro MD Chest X-Ray 08/05/17 2241 Signed Impressions: Service Date/Time: Saturday, August 05, 2017 22:58 - CONCLUSION: 1. Minimal basilar atelectasis. Theodore Rivera MD Objective Remarks GENERAL: Well-developed well-nourished. In no acute distress. SKIN: Warm and dry. Bilateral lower extremity venous stasis changes, dry skin with cracking and dry ulcerations. Cellulitis on right. HEENT: Normocephalic. Pupils equal and round. Mucous membranes pink and moist. CARDIOVASCULAR: Regular rate and rhythm. No murmur appreciated. RESPIRATORY: No accessory muscle use. Clear to auscultation. Breath sounds equal bilaterally. GASTROINTESTINAL: Abdomen soft, non-tender, nondistended. Bowel sounds x4. MUSCULOSKELETAL: Right lower extremity more swollen than the left with erythema and warmth. Right leg tender to palpation. Feet are dry and cracked. NEUROLOGICAL: Awake and alert. No focal neurological deficits. Moves upper and lower extremities spontaneously. Normal speech. PSYCHIATRIC: Appropriate mood and affect; insight and judgment normal. Medications and IVs Current Medications Medications (Trade) Dose Ordered Sig/John Route Start Time Stop Time Status Last Admin (NS Flush) 2 ml UNSCH PRN IV FLUSH 08/06/17 01:00 (NS Flush) 2 ml BID IV FLUSH 08/06/17 09:00 08/07/17 08:27 (Tylenol) 650 mg Q4H PRN PO 08/06/17 01:00 (Zofran Inj) 4 mg Q6H PRN IVP 08/06/17 01:00 08/06/17 12:53 (Heparin Inj) 5,000 units Q12H SQ 08/06/17 09:00 08/07/17 08:31 (Narcan Inj) 0.4 mg UNSCH PRN IV PUSH 08/06/17 01:00 (Milk Of Magnesia Liq) 30 ml Q12H PRN PO 08/06/17 01:00 (Senokot) 17.2 mg Q12H PRN PO 08/06/17 01:00 (Dulcolax Supp) 10 mg DAILY PRN RECTAL 08/06/17 01:00 (Lactulose Liq) 30 ml DAILY PRN PO 08/06/17 01:00 Piperacillin Sod/ Tazobactam Sod 50 ml @ 100 mls/hr Q8H IV 08/06/17 08:00 08/07/17 08:30 Pharmacy Profile Note 0 ml @ 0 mls/hr UNSCH OTHER 08/06/17 01:15 Sodium Chloride 1,000 ml @ 75 mls/hr [id number] IV 08/06/17 12:30 08/07/17 15:09 08/07/17 03:38 A/P Problem List: (1) Venous stasis dermatitis of both lower extremities ICD Code: I87.2 - Venous insufficiency (chronic) (peripheral) Status: Chronic (2) Recurrent cellulitis of lower extremity ICD Code: L03.119 - Cellulitis of unspecified part of limb Status: Acute (3) Acute kidney injury superimposed on chronic kidney disease ICD Code: N17.9 - Acute kidney failure, unspecified; N18.9 - Chronic kidney disease, unspecified Status: Acute Assessment and Plan Acute right lower extremity cellulitis on chronic bilateral lymphedema/ Sepsis The patient has significant venous stasis and has multiple nondraining skin ulcers. Reports outpatient wound culture with MRSA. Has leukocytosis and was tachycardic. Previous cultures from 2011 showed pansensitive MSSA and pseudomonas. Current cultures growing staph aureus, group A beta hemolytic strep and GNR. Doppler negative for DVT. - Continue vancomycin and Zosyn. Follow wound and blood cultures. - Consult wound care. - Consult ID. - IVFs. - pain control with a bowel regimen. Acute on chronic renal insufficiency Creatinine 2.14, previously 1.33 on 04/25/13. Probably secondary to infection and overdiuresis. Improving. - IVFs. - Hold medications as below. - Follow BMP and avoid nephrotoxic agents. Hypertension Blood pressure well controlled at this time. - Hold lisinopril, spironolactone and Lasix with TIP. - Monitor blood pressure and resume antihypertensives as indicated. PPx: Heparin Discharge Planning Awaiting further evaluation Abdulaziz Cordon DO Aug 07, 2017 09:04
[2017-08-07] MEDS: DOCUSATE SODIUM 50 MG/SENNA 8.6 MG TAB PO SCH ×2 (09:30→20:09)
[2017-08-07 10:03] LABS: BANDS 13 % (0-6); NEUTROPHIL # MANUAL DIFF 13.7 TH/MM3 (1.8-7.7); PLATELET ESTIMATE SMEAR NORMAL (NORMAL); PLATELET MORPHOLOGY NORMAL (NORMAL); POLYS (SEG NEUTROPHILS) 76 % (16-70); SCAN/DIFF FINAL DIFF MANUAL; WBC DIFF SAMPLE 100
[2017-08-07 10:04] LABS: OVALOCYTES 1+ (NORMAL); TOXIC VACUOLATION PRESENT (NONE SEEN)
[2017-08-07 10:05] LABS: TOXIC GRANULATION 1+ (NORMAL)
[2017-08-07] MEDS ORDERED: VANCOMYCIN INJ 2,500 MG in SODIUM CHLORID 0.9% 500 ML INJ 500 ML IV ONE (12:00)
[2017-08-08] VITALS (7 sets, daily range): BP systolic 121–157; BP diastolic 59–85; PULSE 91–96; RESP 16–20; TEMP 97.2–98.5; O2SAT 92–96
[2017-08-08] MEDS: PIPERACIL-TAZO 3.375 GM PREMIX 50 ML IV SCH (08:29)
[2017-08-08] MEDS: DOCUSATE SODIUM 50 MG/SENNA 8.6 MG TAB PO SCH ×2 (08:30→20:07)
[2017-08-08] MEDS: HEPARIN SODIUM - SQ 10,000 UNITS/ML VIAL SQ SCH ×2 (08:30→20:07)
[2017-08-08] MEDS: SODIUM CHLORIDE 0.9% FLUSH 10 ML FLUSH IV FLUSH SCH ×2 (08:30→20:07)
[2017-08-08 09:01] LABS: HEMATOCRIT 36.5 % (39.0-51.0); MEAN CELL VOLUME 85.1 FL (80.0-100.0); MEAN CORPUSCULAR HEMOGLOBIN 27.8 PG (27.0-34.0); MEAN CORPUSCULAR HGB CONC 32.6 % (32.0-36.0); PLATELET COUNT 217 TH/MM3 (150-450); RED BLOOD COUNT 4.29 MIL/MM3 (4.50-5.90); RED CELL DISTRIBUTION WIDTH 17.3 % (11.6-17.2); REVIEW FLAG FINAL; WHITE BLOOD COUNT 15.6 TH/MM3 (4.0-11.0)
[2017-08-08] MEDS: guaiFENesin E.R. 600 MG TAB PO SCH ×2 (10:00→20:06)
[2017-08-08] MEDS ORDERED: RESP: ALBUTEROL 2.5 MG/IPRATROPIUM 0.5 MG NEB (PRN) NEB (10:00)
--- NOTE | 2017-08-08 10:04 | HHI.PR ---
Subjective Remarks The patient said that he was having some shortness of breath. He felt congested. Family at the bedside. They were wondering if the patient would end up losing his foot. The patient ambulated with physical therapy. Objective Vitals Vital Signs Date Time Temp Pulse Resp B/P (MAP) Pulse Ox O2 Delivery O2 Flow Rate FiO2 08/08/17 09:47 20 08/08/17 08:15 98.4 96 20 124/59 (80) 95 08/08/17 04:00 98.5 93 16 155/72 (99) 93 08/08/17 00:00 98.0 94 16 148/62 (90) 92 08/07/17 20:07 97.9 95 20 151/69 (96) 94 08/07/17 20:00 96 08/07/17 16:29 97.6 87 20 136/63 (87) 96 08/07/17 12:14 98.3 96 20 137/71 (93) 91 I/O 08/07/17 08/07/17 08/07/17 08/08/17 08/08/17 08/08/17 07:00 15:00 23:00 07:00 15:00 23:00 Intake Total 2240 ml 600 ml 200 ml 50 ml Output Total 850 ml 800 ml Balance 1390 ml -200 ml 200 ml 50 ml Intake Oral 940 ml 600 ml 200 ml IV Total 1300 ml 50 ml Output Urine Total 850 ml 800 ml # Bowel Movements 1 Result Diagram: 08/08/17 0753 08/07/17 0745 Imaging Last Impressions Lower Extremity Ultrasound 08/06/17 0000 Signed Impressions: Service Date/Time: Sunday, August 06, 2017 17:41 - CONCLUSION: No DVT is identified within the right lower extremity. Quintin Bro MD Chest X-Ray 08/05/17 2241 Signed Impressions: Service Date/Time: Saturday, August 05, 2017 22:58 - CONCLUSION: 1. Minimal basilar atelectasis. Theodore Rivera MD Objective Remarks GENERAL: Well-developed well-nourished. In no acute distress. SKIN: Warm and dry. Bilateral lower extremity venous stasis changes, dry skin with cracking and dry ulcerations. Cellulitis on right. HEENT: Normocephalic. Pupils equal and round. Mucous membranes pink and moist. CARDIOVASCULAR: Regular rate and rhythm. No murmur appreciated. RESPIRATORY: No accessory muscle use. Clear to auscultation. Breath sounds equal bilaterally. GASTROINTESTINAL: Abdomen soft, non-tender, nondistended. Bowel sounds x4. MUSCULOSKELETAL: Right lower extremity more swollen than the left with erythema and warmth. Right leg tender to palpation. Feet are dry and cracked. NEUROLOGICAL: Awake and alert. No focal neurological deficits. Moves upper and lower extremities spontaneously. Normal speech. PSYCHIATRIC: Appropriate mood and affect; insight and judgment normal. Medications and IVs Current Medications Medications (Trade) Dose Ordered Sig/John Route Start Time Stop Time Status Last Admin (NS Flush) 2 ml UNSCH PRN IV FLUSH 08/06/17 01:00 (NS Flush) 2 ml BID IV FLUSH 08/06/17 09:00 08/08/17 08:30 (Tylenol) 650 mg Q4H PRN PO 08/06/17 01:00 (Zofran Inj) 4 mg Q6H PRN IVP 08/06/17 01:00 08/06/17 12:53 (Heparin Inj) 5,000 units Q12H SQ 08/06/17 09:00 08/08/17 08:30 (Narcan Inj) 0.4 mg UNSCH PRN IV PUSH 08/06/17 01:00 (Milk Of Magnesia Liq) 30 ml Q12H PRN PO 08/06/17 01:00 (Senokot) 17.2 mg Q12H PRN PO 08/06/17 01:00 (Dulcolax Supp) 10 mg DAILY PRN RECTAL 08/06/17 01:00 (Lactulose Liq) 30 ml DAILY PRN PO 08/06/17 01:00 Piperacillin Sod/ Tazobactam Sod 50 ml @ 100 mls/hr Q8H IV 08/06/17 08:00 08/08/17 08:29 Pharmacy Profile Note 0 ml @ 0 mls/hr UNSCH OTHER 08/06/17 01:15 (Roxicodone) 5 mg Q4H PRN PO 08/07/17 09:30 08/08/17 08:31 (Kamryn-Colace) 1 tab BID PO 08/07/17 09:30 (Duoneb Neb) 1 ampule Q6HR WHILE AWAKE NEB NEB 08/08/17 10:00 UNV (Duoneb Neb) 1 ampule Q2HR NEB PRN NEB 08/08/17 10:00 UNV (Mucinex Er) 600 mg BID PO 08/08/17 10:00 UNV A/P Problem List: (1) Venous stasis dermatitis of both lower extremities ICD Code: I87.2 - Venous insufficiency (chronic) (peripheral) Status: Chronic (2) Recurrent cellulitis of lower extremity ICD Code: L03.119 - Cellulitis of unspecified part of limb Status: Acute (3) Acute kidney injury superimposed on chronic kidney disease ICD Code: N17.9 - Acute kidney failure, unspecified; N18.9 - Chronic kidney disease, unspecified Status: Acute Assessment and Plan Acute right lower extremity cellulitis on chronic bilateral lymphedema/ Sepsis The patient has significant venous stasis and has multiple nondraining skin ulcers. Reports outpatient wound culture with MRSA. Has leukocytosis and was tachycardic. Previous cultures from 2011 showed pansensitive MSSA and pseudomonas. Current cultures growing staph aureus, group A beta hemolytic strep , Providencia Stuartii and Proteus Mirabilis. Doppler negative for DVT. - Continue vancomycin. Change Zosyn to ceftriaxone per sensitivities. Follow blood cultures. - Consult wound care. - Consult ID for assistance. - s/p IVFs. - pain control with a bowel regimen. Acute on chronic renal insufficiency Creatinine 2.14, previously 1.33 on 04/25/13. Probably secondary to infection and overdiuresis. Improving. - s/p IVFs. - Hold medications as below. - Follow BMP and avoid nephrotoxic agents. Bronchitis The pt has been wheezing and feels congested. CXR without any acute abnormality. - Duonebs standing and as needed for now. - incentive spirometry. - Mucinex BID. Hypertension Blood pressure relatively well controlled at this time. - Hold lisinopril, spironolactone and Lasix with TIP. - Monitor blood pressure and resume antihypertensives as indicated. Hyperglycemia No history of diabetes. May be a stress reaction. - check a HgbA1c. PPx: Heparin Discharge Planning Awaiting ID consult Abdulaziz Cordon DO Aug 08, 2017 10:04
[2017-08-08 10:42] LABS: BICARBONATE 25.2 MEQ/L (21.0-32.0); MAGNESIUM 2.5 MG/DL (1.5-2.5); POTASSIUM 3.7 MEQ/L (3.5-5.1)
[2017-08-08] MEDS: RESP: ALBUTEROL 2.5 MG/IPRATROPIUM 0.5 MG NEB (SCH) NEB ×2 (12:17→19:43)
[2017-08-08 12:18] LABS: HEMOGLOBIN A1a 1.9 %; HEMOGLOBIN A1b 1.7 %; HEMOGLOBIN Ao 84.5 %; HEMOGLOBIN LA1C 1.9 %; HEMOGLOBIN P3 3.8 %
[2017-08-08] MEDS: cefTRIAXone INJ 1,000 MG in SODIUM CHLORIDE 0.9% INJ 100 ML IV SCH (14:22)
--- NOTE | 2017-08-08 15:05 | PD.ID.CON ---
History of Present Illness Service ID Consult Requested By Reason for Consult Evaluation and mment of bilateral LE cellulitis and ulcerations. Primary Care Physician Unknown Diagnoses: History of Present Illness is an 82-year-old male with a medical history significant for osteoarthritis, prostate cancer, hypertension, chronic lower extremity edema presents with complaint of infection involving bilateral lower extremities. Patient is a very poor historian and not able to elaborate on the history. He reports he normally gets these infections once a year. He does not follow with a primary care physician. He reports that they just have been getting worse. He is experiencing significant pain with walking. There has been erythema and warmth. Subjective fevers at home. He states his legs have been swelling intermittently. Patient denies shortness of breath or chest pain. Hospital course: No fevers, No rash, No diarrhea. RLE with significant swelling , blisters with discharge, erythema and warmth noted. Review of Systems Constitutional: DENIES: Diaphoretic episodes, Fatigue, Fever, Weight gain, Weight loss, Chills, Dizziness, Change in appetite, Night Sweats Endocrine: DENIES: Heat/cold intolerance, Polydipsia, Polyuria, Polyphagia Eyes: DENIES: Blurred vision, Diplopia, Eye inflammation, Eye pain, Vision loss , Photosensitivity, Double Vision Ears, nose, mouth, throat: DENIES: Tinnitus, Hearing loss, Vertigo, Nasal discharge, Oral lesions, Throat pain, Hoarseness, Ear Pain, Running Nose, Epistaxis, Sinus Pain, Toothache, Odynophagia Respiratory: DENIES: Apneas, Cough, Snoring, Wheezing, Hemoptysis, Sputum production, Shortness of breath Cardiovascular: DENIES: Chest pain, Palpitations, Syncope, Dyspnea on Exertion , PND, Lower Extremity Edema, Orthopnea, Claudication Gastrointestinal: DENIES: Abdominal pain, Black stools, Bloody stools, Constipation, Diarrhea, Nausea, Vomiting, Difficulty Swallowing, Anorexia Genitourinary: DENIES: Sexual dysfunction, Urinary frequency, Urinary incontinence, Urgency, Hematuria, Dysuria, Nocturia, Penile Discharge, Testicular Pain, Testicular Swelling Musculoskeletal: DENIES: Joint pain, Muscle aches, Stiffness, Joint Swelling, Back pain, Neck pain Integumentary: COMPLAINS OF: Abnormal pigmentation, Nail changes, DENIES: Pruritus, Rash Hematologic/lymphatic: DENIES: Bruising, Lymphadenopathy Immunologic/allergic: COMPLAINS OF: Eczema, DENIES: Urticaria Neurologic: DENIES: Abnormal gait, Headache, Localized weakness, Paresthesias, Seizures, Speech Problems, Tremor, Poor Balance Psychiatric: DENIES: Anxiety, Confusion, Mood changes, Depression, Hallucinations, Agitation, Suicidal Ideation, Homicidal Ideation, Delusions Except as stated in HPI: all other systems reviewed are Neg Past Family Social History Allergies: Coded Allergies: No Known Allergies (Unverified , 08/05/17) Past Medical History Hypertension Osteoarthritis Prostate cancer Bilateral chronic lower extremity edema/venous stasis changes. Hyperkeratosis of skin Lymphedema Past Surgical History Appendectomy Prostate cancer surgery Left knee surgery Back surgery Reported Medications Reported Meds & Active Scripts Active Reported Lisinopril 10 Mg Tab 10 Mg PO DAILY Furosemide 40 Mg Tab 40 Mg PO DAILY Aldactone (Spironolactone) 25 Mg Tab 25 Mg PO DAILY Active Ordered Medications Current Medications Medications (Trade) Dose Ordered Sig/John Route Start Time Stop Time Status Last Admin (NS Flush) 2 ml UNSCH PRN IV FLUSH 08/06/17 01:00 (NS Flush) 2 ml BID IV FLUSH 08/06/17 09:00 08/08/17 20:07 (Tylenol) 650 mg Q4H PRN PO 08/06/17 01:00 (Zofran Inj) 4 mg Q6H PRN IVP 08/06/17 01:00 08/06/17 12:53 (Heparin Inj) 5,000 units Q12H SQ 08/06/17 09:00 08/08/17 20:07 (Narcan Inj) 0.4 mg UNSCH PRN IV PUSH 08/06/17 01:00 (Milk Of Magnesia Liq) 30 ml Q12H PRN PO 08/06/17 01:00 (Senokot) 17.2 mg Q12H PRN PO 08/06/17 01:00 (Dulcolax Supp) 10 mg DAILY PRN RECTAL 08/06/17 01:00 (Lactulose Liq) 30 ml DAILY PRN PO 08/06/17 01:00 Pharmacy Profile Note 0 ml @ 0 mls/hr UNSCH OTHER 08/06/17 01:15 (Roxicodone) 5 mg Q4H PRN PO 08/07/17 09:30 08/08/17 14:22 (Kamryn-Colace) 1 tab BID PO 08/07/17 09:30 (Duoneb Neb) 1 ampule Q6HR WHILE AWAKE NEB NEB 08/08/17 10:00 08/08/17 19:43 (Duoneb Neb) 1 ampule Q2HR NEB PRN NEB 08/08/17 10:00 (Mucinex Er) 600 mg BID PO 08/08/17 10:00 08/08/17 20:06 Ceftriaxone Sodium 1000 mg/ Sodium Chloride 100 ml @ 200 mls/hr Q24H IV 08/08/17 14:00 08/08/17 14:22 Family History Mother from complications of pancreatic cancer Father had lung cancer Social History 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 No smoking No alcohol No illicit drugs Physical Exam Vital Signs Vital Signs Date Time Temp Pulse Resp B/P (MAP) Pulse Ox O2 Delivery O2 Flow Rate FiO2 08/08/17 12:00 97.9 93 20 157/85 (109) 96 08/08/17 09:47 20 08/08/17 08:15 98.4 96 20 124/59 (80) 95 08/08/17 04:00 98.5 93 16 155/72 (99) 93 08/08/17 00:00 98.0 94 16 148/62 (90) 92 08/07/17 20:07 97.9 95 20 151/69 (96) 94 08/07/17 20:00 96 08/07/17 16:29 97.6 87 20 136/63 (87) 96 Physical Exam GENERAL: Obese, well-developed patient, in no apparent distress. SKIN: No rashes, ecchymoses or lesions. Cool and dry. HEAD: Atraumatic. Normocephalic. No temporal or scalp tenderness. EYES: Pupils equal round and reactive. Extraocular motions intact. No scleral icterus. No injection or drainage. ENT: Nose without bleeding, purulent drainage or septal hematoma. Throat without erythema, tonsillar hypertrophy or exudate. Uvula midline. Airway patent. NECK: Trachea midline. Supple, nontender, no meningeal signs. CARDIOVASCULAR: Regular rate and rhythm without murmurs, gallops, or rubs. RESPIRATORY: Clear to auscultation. Breath sounds equal bilaterally. No wheezes , rales, or rhonchi. GASTROINTESTINAL: Abdomen soft, non-tender, nondistended. Obese MUSCULOSKELETAL: RLE with significant swelling, erythema, blisters with oozing noted. This erythema is on the inner aspect of leg, knee and extends to the inner thigh. NEUROLOGICAL: Awake and alert. Grossly non focal Psych cooperative IV line sites with no e.o infection Laboratory Laboratory Tests Test 08/08/17 07:53 White Blood Count 15.6 Red Blood Count 4.29 Hemoglobin 11.9 Hematocrit 36.5 Mean Corpuscular Volume 85.1 Mean Corpuscular Hemoglobin 27.8 Mean Corpuscular Hemoglobin Concent 32.6 Red Cell Distribution Width 17.3 Platelet Count 217 Mean Platelet Volume 9.0 Blood Urea Nitrogen 19 Creatinine 1.71 Random Glucose 91 Calcium Level 9.2 Magnesium Level 2.5 Sodium Level 136 Potassium Level 3.7 Chloride Level 102 Carbon Dioxide Level 25.2 Anion Gap 9 Estimat Glomerular Filtration Rate 47 Hemoglobin A1c 5.8 Date/Time Source Procedure Growth Status 08/05/17 23:00 Blood Peripheral Aerobic Blood Culture - Preliminary NO GROWTH IN 3 DAYS Resulted 08/05/17 23:00 Blood Peripheral Anaerobic Blood Culture - Preliminary NO GROWTH IN 3 DAYS Resulted 08/05/17 22:50 Wound Skin Gram Stain - Final Complete 08/05/17 22:50 Wound Culture - Final S. Aureus Mrsa Group A Beta Strep Providencia Stuartii Proteus Mirabilis Complete Result Diagram: 08/08/17 0753 08/08/17 0753 Imaging Last Impressions Lower Extremity Ultrasound 08/06/17 0000 Signed Impressions: Service Date/Time: Sunday, August 06, 2017 17:41 - CONCLUSION: No DVT is identified within the right lower extremity. Quintin Bro MD Chest X-Ray 08/05/17 2241 Signed Impressions: Service Date/Time: Saturday, August 05, 2017 22:58 - CONCLUSION: 1. Minimal basilar atelectasis. Theodore Rivera MD Assessment and Plan Assessment and Plan Bilateral LE cellulitis Right more than left. Lymphedema bilateral LE Acute renal failure Morbid Obesity (BMI 37.6 kg/m2) Recs Continue Ceftriaxone IV DC vanco IV Start Zyvox IV Follow cultures Follow clinically [place] wrap Elevate leg Bessie Chicas MD Aug 08, 2017 15:05
--- NOTE | 2017-08-08 16:10 | PD.WCN.NOT ---
Wound Consult Description: Received consult for evaluation of wound management of lower extremity wounds Communicated with: IRINA beck and Doctor Neris Recommendation: Please cleanse wounds to bilateral lower extremities with wound cleanser and apply optifoam AG non adhesive over wound beds and secure with roll gauze, tape and elastic wrap. Change dressings every 2 days or PRN if saturated or dislodged. Lac hydrin lotion is recommended for BLE intact peeling dry skin Additional Information: Patient seen on [address] [place] [address] with IRINA Landeros at bedside for dressing change.Entire RLE is noted with hard non pitting edema and dry peeling hyperkeratotic skin, with erythema to R knee and upper R calf area.3 ulcers to RLE were open to air.Wounds appear clean, with 100% clean red granulation tissue.Wounds measure ~ 3mc x ~3cm x ~0.1cm. Maceration is seen to periwound from moderate drainage without odor. Removed elastic wrap and rolled gauze in place on LLE to reveal 4 clean full thickness ulcers to L leg Wounds presents with 100% red granulation tissue with the largest wound measuring ~4cm x ~8cm x ~0.1cm. Drainage from wound is moderate sero-sanguinous with out odor. Entire L leg is noted with non pitting hard edema and dry peeling hyperkeratotic skin. Edema on RLE is worse than edema on LLE. IRINA Landeros in room doing wound care with student nurse assisting her. IRINA Landeros to clean and dress wounds. Zoey Martínez [facility] Aug 08, 2017 16:10
[2017-08-08] MEDS: LINEZOLID 600 MG PREMIX 300 ML IV SCH (23:30)
[2017-08-09] VITALS (7 sets, daily range): BP systolic 120–138; BP diastolic 58–80; PULSE 80–97; RESP 18–20; TEMP 97.7–99; O2SAT 92–98
[2017-08-09] MEDS: RESP: ALBUTEROL 2.5 MG/IPRATROPIUM 0.5 MG NEB (SCH) NEB ×3 (08:12→21:15)
[2017-08-09] MEDS: DOCUSATE SODIUM 50 MG/SENNA 8.6 MG TAB PO SCH ×2 (09:00→20:38)
[2017-08-09] MEDS: guaiFENesin E.R. 600 MG TAB PO SCH ×2 (09:18→20:38)
[2017-08-09] MEDS: HEPARIN SODIUM - SQ 10,000 UNITS/ML VIAL SQ SCH ×2 (09:18→20:38)
[2017-08-09] MEDS: SODIUM CHLORIDE 0.9% FLUSH 10 ML FLUSH IV FLUSH SCH ×2 (09:18→20:38)
[2017-08-09] MEDS: LINEZOLID 600 MG PREMIX 300 ML IV SCH ×2 (09:19→20:38)
[2017-08-09] MEDS: FUROSEMIDE 40 MG TAB PO SCH (11:00)
[2017-08-09] MEDS: LISINOPRIL 10 MG TAB PO SCH (11:00)
[2017-08-09] MEDS: SPIRONOLACTONE 25 MG TAB PO SCH (11:00)
--- NOTE | 2017-08-09 11:13 | HHI.PR ---
Subjective Remarks Nursing reports no acute setbacks since last night. Patient himself says that he still has pain in his legs but it is improved since admission. His tolerating by mouth intake. Objective Vital Signs Date Time Temp Pulse Resp B/P (MAP) Pulse Ox O2 Delivery O2 Flow Rate FiO2 08/09/17 08:00 97.8 80 20 120/71 (87) 96 08/09/17 04:00 98.5 84 18 135/60 (85) 94 08/09/17 00:00 97.7 90 20 132/80 (97) 92 08/08/17 20:00 98.2 91 20 121/81 (94) 93 08/08/17 20:00 93 08/08/17 18:05 96 08/08/17 16:50 20 08/08/17 16:00 97.2 91 20 137/64 (88) 95 08/08/17 12:00 97.9 93 20 157/85 (109) 96 I/O 08/08/17 08/08/17 08/08/17 08/09/17 08/09/17 08/09/17 07:00 15:00 23:00 07:00 15:00 23:00 Intake Total 250 ml 50 ml 580 ml 240 ml Output Total 600 ml 500 ml Balance 250 ml 50 ml -20 ml -260 ml Intake Oral 200 ml 480 ml 240 ml IV Total 50 ml 50 ml 100 ml Output Urine Total 600 ml 500 ml # Bowel Movements 1 1 Result Diagram: 08/08/17 0753 08/08/17 0753 Objective Remarks Bilateral lower extremities wrapped, ambulating slowly without walker, has induration noted on lower extremities that protrudes beyond the extent of the wrapping just distal to his knees bilaterally, as diffuse tenderness to palpation over both lower legs. Otherwise in no acute distress, unlabored breathing A/P Assessment and Plan Acute right lower extremity cellulitis on chronic bilateral lymphedema/ Sepsis The patient has significant venous stasis and has multiple nondraining skin ulcers. Reports outpatient wound culture with MRSA. Has leukocytosis and was tachycardic. Previous cultures from 2011 showed pansensitive MSSA and pseudomonas. Current cultures growing staph aureus, group A beta hemolytic strep , Providencia Stuartii and Proteus Mirabilis. Doppler negative for DVT. BLE cellulitis w/ lymphedema - apart from leukocytosis sepsis component resolved - wound care w/ dressing changes. - appreciate ID recs, continue zyvox and rocephin. - pain control with a bowel regimen. - elevate legs chronic renal insufficiency -RF has stabilized to new chronic levels w/ Cr 1.71 Bronchitis CXR without any acute abnormality. - Duonebs standing and as needed for now. - incentive spirometry. - Mucinex BID. Hypertension - resumed home lisinopril, spironolactone and Lasix Hyperglycemia No history of diabetes. May be a stress reaction. - check a HgbA1c. PPx: Heparin Robert Inman MD Aug 09, 2017 11:13
[2017-08-09 12:28] LABS: HEMATOCRIT 35.2 % (39.0-51.0); MEAN CELL VOLUME 85.8 FL (80.0-100.0); MEAN CORPUSCULAR HEMOGLOBIN 27.8 PG (27.0-34.0); MEAN CORPUSCULAR HGB CONC 32.4 % (32.0-36.0); PLATELET COUNT 194 TH/MM3 (150-450); RED CELL DISTRIBUTION WIDTH 17.5 % (11.6-17.2); REVIEW FLAG FINAL; WHITE BLOOD COUNT 9.7 TH/MM3 (4.0-11.0)
[2017-08-09 13:00] LABS: BICARBONATE 28.2 MEQ/L (21.0-32.0); MAGNESIUM 2.5 MG/DL (1.5-2.5); POTASSIUM 3.4 MEQ/L (3.5-5.1)
--- NOTE | 2017-08-09 15:17 | HHI.IDPN ---
Subjective Subjective Remarks is an 82-year-old male with a medical history significant for osteoarthritis, prostate cancer, hypertension, chronic lower extremity edema presents with complaint of infection involving bilateral lower extremities. Patient is a very poor historian and not able to elaborate on the history. He reports he normally gets these infections once a year. He does not follow with a primary care physician. He reports that they just have been getting worse. He is experiencing significant pain with walking. There has been erythema and warmth. Subjective fevers at home. He states his legs have been swelling intermittently. Patient denies shortness of breath or chest pain. Hospital course: No fevers, No rash, No diarrhea. RLE with significant swelling , blisters with discharge, erythema and warmth noted. ID consulted for cellulitis not improving despite antibiotics. Overnight events reviewed No fevers No rash No diarrhea Antibiotics Ceftriaxone IV Vanco IV Lines Line sites with no e.o infection Past Medical History Hypertension Osteoarthritis Prostate cancer Bilateral chronic lower extremity edema/venous stasis changes. Hyperkeratosis of skin Lymphedema Appendectomy Prostate cancer surgery Left knee surgery Back surgery Allergies: Coded Allergies: No Known Allergies (Unverified , 08/05/17) Objective . Vital Signs Date Time Temp Pulse Resp B/P (MAP) Pulse Ox O2 Delivery O2 Flow Rate FiO2 08/09/17 08:00 97.8 80 20 120/71 (87) 96 08/09/17 04:00 98.5 84 18 135/60 (85) 94 08/09/17 00:00 97.7 90 20 132/80 (97) 92 08/08/17 20:00 98.2 91 20 121/81 (94) 93 08/08/17 20:00 93 08/08/17 18:05 96 08/08/17 16:50 20 08/08/17 16:00 97.2 91 20 137/64 (88) 95 . Laboratory Tests Test 08/08/17 07:53 08/09/17 11:28 White Blood Count 15.6 TH/MM3 9.7 TH/MM3 Red Blood Count 4.29 MIL/MM3 4.10 MIL/MM3 Hemoglobin 11.9 GM/DL 11.4 GM/DL Hematocrit 36.5 % 35.2 % Mean Corpuscular Volume 85.1 FL 85.8 FL Mean Corpuscular Hemoglobin 27.8 PG 27.8 PG Mean Corpuscular Hemoglobin Concent 32.6 % 32.4 % Red Cell Distribution Width 17.3 % 17.5 % Platelet Count 217 TH/MM3 194 TH/MM3 Mean Platelet Volume 9.0 FL 8.4 FL Laboratory Tests Test 08/08/17 07:53 08/09/17 11:28 Blood Urea Nitrogen 19 MG/DL 16 MG/DL Creatinine 1.71 MG/DL 1.57 MG/DL Random Glucose 91 MG/DL 112 MG/DL Calcium Level 9.2 MG/DL 8.8 MG/DL Magnesium Level 2.5 MG/DL 2.5 MG/DL Sodium Level 136 MEQ/L 138 MEQ/L Potassium Level 3.7 MEQ/L 3.4 MEQ/L Chloride Level 102 MEQ/L 102 MEQ/L Carbon Dioxide Level 25.2 MEQ/L 28.2 MEQ/L Anion Gap 9 MEQ/L 8 MEQ/L Estimat Glomerular Filtration Rate 47 ML/MIN 52 ML/MIN Hemoglobin A1c 5.8 % Imaging Last Impressions Lower Extremity Ultrasound 08/06/17 0000 Signed Impressions: Service Date/Time: Sunday, August 06, 2017 17:41 - CONCLUSION: No DVT is identified within the right lower extremity. Quintin Bro MD Chest X-Ray 08/05/17 2241 Signed Impressions: Service Date/Time: Saturday, August 05, 2017 22:58 - CONCLUSION: 1. Minimal basilar atelectasis. Theodore Rivera MD Physical Exam GENERAL: Obese, well-developed patient, in no apparent distress. SKIN: No rashes, ecchymoses or lesions. Cool and dry. HEAD: Atraumatic. Normocephalic. No temporal or scalp tenderness. EYES: Pupils equal round and reactive. Extraocular motions intact. No scleral icterus. No injection or drainage. ENT: Nose without bleeding, purulent drainage or septal hematoma. Throat without erythema, tonsillar hypertrophy or exudate. Uvula midline. Airway patent. NECK: Trachea midline. Supple, nontender, no meningeal signs. CARDIOVASCULAR: Regular rate and rhythm without murmurs, gallops, or rubs. RESPIRATORY: Clear to auscultation. Breath sounds equal bilaterally. No wheezes , rales, or rhonchi. GASTROINTESTINAL: Abdomen soft, non-tender, nondistended. Obese MUSCULOSKELETAL: RLE with significant swelling, erythema, blisters with oozing noted. This erythema is on the inner aspect of leg, knee and extends to the inner thigh. NEUROLOGICAL: Awake and alert. Grossly non focal Psych cooperative IV line sites with no e.o infection Assessment & Plan Remarks Bilateral LE cellulitis Right more than left. Lymphedema bilateral LE Acute renal failure Morbid Obesity (BMI 37.6 kg/m2) Recs Continue Ceftriaxone IV Continue Zyvox IV Follow cultures Follow clinically PLease place BARRON wrap on involved areas on inner aspect of thigh. Also patient has feet dangling most of the times. Elevate leg Bessie Chicas MD Aug 09, 2017 15:17
[2017-08-09] MEDS: cefTRIAXone INJ 1,000 MG in SODIUM CHLORIDE 0.9% INJ 100 ML IV SCH (15:40)
[2017-08-09] MEDS: ACETAMINOPHEN/HYDROcodone 325 MG/7.5 MG TAB PO PRN (20:39)
[2017-08-10] VITALS (8 sets, daily range): BP systolic 120–163; BP diastolic 59–81; PULSE 75–95; RESP 18–21; TEMP 97.6–98.6; O2SAT 91–100
[2017-08-10] MEDS: ACETAMINOPHEN/HYDROcodone 325 MG/7.5 MG TAB PO PRN ×4 (05:47→21:24)
[2017-08-10] MEDS: RESP: ALBUTEROL 2.5 MG/IPRATROPIUM 0.5 MG NEB (SCH) NEB ×3 (08:39→21:30)
[2017-08-10] MEDS: DOCUSATE SODIUM 50 MG/SENNA 8.6 MG TAB PO SCH ×2 (09:00→20:48)
[2017-08-10] MEDS: guaiFENesin E.R. 600 MG TAB PO SCH ×2 (09:37→20:48)
[2017-08-10] MEDS: LISINOPRIL 10 MG TAB PO SCH (09:37)
[2017-08-10] MEDS: FUROSEMIDE 40 MG TAB PO SCH (09:37)
[2017-08-10] MEDS: SPIRONOLACTONE 25 MG TAB PO SCH (09:37)
[2017-08-10] MEDS: LINEZOLID 600 MG PREMIX 300 ML IV SCH ×2 (09:38→20:50)
[2017-08-10] MEDS: SODIUM CHLORIDE 0.9% FLUSH 10 ML FLUSH IV FLUSH SCH ×2 (09:39→20:49)
[2017-08-10] MEDS: HEPARIN SODIUM - SQ 10,000 UNITS/ML VIAL SQ SCH ×2 (09:40→20:48)
--- NOTE | 2017-08-10 10:45 | HHI.PR ---
Subjective Remarks Nursing reports no acute setbacks since last night. Patient and family member say that his legs look much better Objective Vital Signs Date Time Temp Pulse Resp B/P (MAP) Pulse Ox O2 Delivery O2 Flow Rate FiO2 08/10/17 08:43 95 Nasal Cannula 3.00 08/10/17 04:00 98.4 91 18 143/65 (91) 93 08/10/17 00:00 98.6 93 18 120/59 (79) 94 08/10/17 00:00 Room Air 08/09/17 20:00 Room Air 08/09/17 20:00 99.0 89 18 128/59 (82) 98 08/09/17 20:00 90 08/09/17 16:00 98.2 97 20 138/66 (90) 92 08/09/17 12:00 98.1 96 20 129/58 (81) 94 I/O 08/09/17 08/09/17 08/09/17 08/10/17 08/10/17 08/10/17 07:00 15:00 23:00 07:00 15:00 23:00 Intake Total 240 ml 480 ml Output Total 500 ml 650 ml 900 ml Balance -260 ml -170 ml -900 ml Intake Oral 240 ml 480 ml Output Urine Total 500 ml 650 ml 900 ml # Voids 6 # Bowel Movements 1 1 3 Result Diagram: 08/09/17 1128 08/09/17 1128 Objective Remarks Bilateral lower extremities wrapped, ambulating slowly without walker, has receding induration noted on lower extremities that no longer protrudes beyond the extent of the wrapping just distal to his knees bilaterally, has mild pain elicited with dorsiflexion of both feet Otherwise in no acute distress, unlabored breathing A/P Assessment and Plan Acute right lower extremity cellulitis on chronic bilateral lymphedema/ Sepsis The patient has significant venous stasis and has multiple nondraining skin ulcers. Reports outpatient wound culture with MRSA. Has leukocytosis and was tachycardic. Previous cultures from 2011 showed pansensitive MSSA and pseudomonas. Current cultures growing staph aureus, group A beta hemolytic strep , Providencia Stuartii and Proteus Mirabilis. Doppler negative for DVT. BLE cellulitis w/ lymphedema - improving - wound care w/ dressing changes. - appreciate ID recs, continue zyvox and rocephin. - pain control with a bowel regimen. - elevate legs chronic renal insufficiency -RF has stabilized to new chronic levels w/ Cr 1.71 Bronchitis CXR without any acute abnormality. - Duonebs standing and as needed for now. - incentive spirometry. - Mucinex BID. Hypertension - home lisinopril, spironolactone and Lasix Hyperglycemia No history of diabetes. May be a stress reaction. - 5.8% PPx: Heparin Robert Inman MD Aug 10, 2017 10:45
[2017-08-10] MEDS: cefTRIAXone INJ 1,000 MG in SODIUM CHLORIDE 0.9% INJ 100 ML IV SCH (14:00)
--- NOTE | 2017-08-10 20:30 | HHI.IDPN ---
Subjective Subjective Remarks is an 82-year-old male with a medical history significant for osteoarthritis, prostate cancer, hypertension, chronic lower extremity edema presents with complaint of infection involving bilateral lower extremities. Patient is a very poor historian and not able to elaborate on the history. He reports he normally gets these infections once a year. He does not follow with a primary care physician. He reports that they just have been getting worse. He is experiencing significant pain with walking. There has been erythema and warmth. Subjective fevers at home. He states his legs have been swelling intermittently. Patient denies shortness of breath or chest pain. Hospital course: No fevers, No rash, No diarrhea. RLE with significant swelling , blisters with discharge, erythema and warmth noted. ID consulted for cellulitis not improving despite antibiotics. Overnight events reviewed No fevers No rash No diarrhea Antibiotics Ceftriaxone IV Vanco IV Lines Line sites with no e.o infection Past Medical History Hypertension Osteoarthritis Prostate cancer Bilateral chronic lower extremity edema/venous stasis changes. Hyperkeratosis of skin Lymphedema Appendectomy Prostate cancer surgery Left knee surgery Back surgery Allergies: Coded Allergies: No Known Allergies (Unverified , 08/05/17) Objective . Vital Signs Date Time Temp Pulse Resp B/P (MAP) Pulse Ox O2 Delivery O2 Flow Rate FiO2 08/10/17 16:00 98.2 82 20 147/68 (94) 97 08/10/17 12:00 97.6 93 20 135/64 (87) 99 08/10/17 08:43 95 Nasal Cannula 3.00 08/10/17 08:00 98.1 84 20 150/72 (98) 91 08/10/17 07:15 Room Air 08/10/17 04:00 98.4 91 18 143/65 (91) 93 08/10/17 00:00 98.6 93 18 120/59 (79) 94 08/10/17 00:00 Room Air 08/10/17 08/10/17 08/11/17 15:00 23:00 07:00 Intake Total 720 ml Output Total 525 ml Balance 195 ml Intake Oral 720 ml Output Urine Total 525 ml # Voids 3 # Bowel Movements 3 . Laboratory Tests Test 08/09/17 11:28 White Blood Count 9.7 TH/MM3 Red Blood Count 4.10 MIL/MM3 Hemoglobin 11.4 GM/DL Hematocrit 35.2 % Mean Corpuscular Volume 85.8 FL Mean Corpuscular Hemoglobin 27.8 PG Mean Corpuscular Hemoglobin Concent 32.4 % Red Cell Distribution Width 17.5 % Platelet Count 194 TH/MM3 Mean Platelet Volume 8.4 FL Laboratory Tests Test 08/09/17 11:28 Blood Urea Nitrogen 16 MG/DL Creatinine 1.57 MG/DL Random Glucose 112 MG/DL Calcium Level 8.8 MG/DL Magnesium Level 2.5 MG/DL Sodium Level 138 MEQ/L Potassium Level 3.4 MEQ/L Chloride Level 102 MEQ/L Carbon Dioxide Level 28.2 MEQ/L Anion Gap 8 MEQ/L Estimat Glomerular Filtration Rate 52 ML/MIN Imaging Last Impressions Lower Extremity Ultrasound 08/06/17 0000 Signed Impressions: Service Date/Time: Sunday, August 06, 2017 17:41 - CONCLUSION: No DVT is identified within the right lower extremity. Quintin Bro MD Chest X-Ray 08/05/17 2241 Signed Impressions: Service Date/Time: Saturday, August 05, 2017 22:58 - CONCLUSION: 1. Minimal basilar atelectasis. Theodore Rivera MD Physical Exam GENERAL: Obese, well-developed patient, in no apparent distress. SKIN: No rashes, ecchymoses or lesions. Cool and dry. HEAD: Atraumatic. Normocephalic. No temporal or scalp tenderness. EYES: Pupils equal round and reactive. Extraocular motions intact. No scleral icterus. No injection or drainage. ENT: Nose without bleeding, purulent drainage or septal hematoma. Throat without erythema, tonsillar hypertrophy or exudate. Uvula midline. Airway patent. NECK: Trachea midline. Supple, nontender, no meningeal signs. CARDIOVASCULAR: Regular rate and rhythm without murmurs, gallops, or rubs. RESPIRATORY: Clear to auscultation. Breath sounds equal bilaterally. No wheezes , rales, or rhonchi. GASTROINTESTINAL: Abdomen soft, non-tender, nondistended. Obese MUSCULOSKELETAL: RLE with significant swelling, erythema, blisters with oozing noted. This erythema is on the inner aspect of leg, knee and extends to the inner thigh. NEUROLOGICAL: Awake and alert. Grossly non focal Psych cooperative IV line sites with no e.o infection Assessment & Plan Remarks Bilateral LE cellulitis Right more than left. Lymphedema bilateral LE Acute renal failure Morbid Obesity (BMI 37.6 kg/m2) Recs Continue Ceftriaxone IV Continue Zyvox IV Follow cultures Follow clinically PLease place BARRON wrap on involved areas on inner aspect of thigh. Also patient has feet dangling most of the times. Elevate leg Will follow next on Sunday If any change in clinical condition in interim please call covering for me. Bessie Chicas MD Aug 10, 2017 20:30
[2017-08-11] VITALS (9 sets, daily range): BP systolic 140–162; BP diastolic 67–83; PULSE 91–103; RESP 18–20; TEMP 97.8–98.8; O2SAT 88–99
[2017-08-11] MEDS: ACETAMINOPHEN/HYDROcodone 325 MG/7.5 MG TAB PO PRN ×3 (03:53→19:31)
[2017-08-11] MEDS: RESP: ALBUTEROL 2.5 MG/IPRATROPIUM 0.5 MG NEB (SCH) NEB ×3 (07:52→21:49)
[2017-08-11] MEDS: DOCUSATE SODIUM 50 MG/SENNA 8.6 MG TAB PO SCH ×2 (08:27→20:29)
[2017-08-11] MEDS: FUROSEMIDE 40 MG TAB PO SCH (08:31)
[2017-08-11] MEDS: HEPARIN SODIUM - SQ 10,000 UNITS/ML VIAL SQ SCH ×2 (08:31→20:28)
[2017-08-11] MEDS: guaiFENesin E.R. 600 MG TAB PO SCH ×2 (08:31→20:28)
[2017-08-11] MEDS: LISINOPRIL 10 MG TAB PO SCH (08:31)
[2017-08-11] MEDS: SPIRONOLACTONE 25 MG TAB PO SCH (08:31)
[2017-08-11] MEDS: LINEZOLID 600 MG PREMIX 300 ML IV SCH ×2 (08:32→20:28)
[2017-08-11] MEDS: SODIUM CHLORIDE 0.9% FLUSH 10 ML FLUSH IV FLUSH SCH ×2 (08:32→20:29)
[2017-08-11] MEDS: cefTRIAXone INJ 1,000 MG in SODIUM CHLORIDE 0.9% INJ 100 ML IV SCH (14:52)
--- NOTE | 2017-08-11 15:41 | HHI.PR ---
Subjective Remarks Nursing reports no acute setbacks since last night. Patient says he still has pain in his legs. otherwise no new complaints. Objective Vital Signs Date Time Temp Pulse Resp B/P (MAP) Pulse Ox O2 Delivery O2 Flow Rate FiO2 08/11/17 12:00 98.4 100 20 145/67 (93) 99 08/11/17 08:10 Room Air 08/11/17 08:00 91 08/11/17 08:00 98.6 97 20 140/83 (102) 95 08/11/17 07:54 88 21 08/11/17 04:00 98.0 97 18 152/70 (97) 95 08/11/17 00:00 97.8 92 19 146/67 (93) 93 08/10/17 21:31 95 Nasal Cannula 2.00 08/10/17 20:00 87 08/10/17 20:00 98.6 95 21 163/81 (108) 100 08/10/17 19:00 100 Room Air 08/10/17 16:00 98.2 82 20 147/68 (94) 97 I/O 08/10/17 08/10/17 08/10/17 08/11/17 08/11/17 08/11/17 07:00 15:00 23:00 07:00 15:00 23:00 Intake Total 1020 ml 300 ml 300 ml 100 ml Output Total 900 ml 525 ml 200 ml 1600 ml Balance -900 ml 495 ml 100 ml -1300 ml 100 ml Intake Oral 720 ml IV Total 300 ml 300 ml 300 ml 100 ml Output Urine Total 900 ml 525 ml 200 ml 1600 ml # Voids 6 3 # Bowel Movements 3 3 Result Diagram: 08/09/17 1128 08/09/17 1128 Objective Remarks Bilateral lower extremities wrapped, legs are indurated w/ chronic skin changes , right espinal with anterior wound lesion that is dressed Otherwise in no acute distress, unlabored breathing A/P Assessment and Plan Acute right lower extremity cellulitis on chronic bilateral lymphedema/ Sepsis The patient has significant venous stasis and has multiple nondraining skin ulcers. Reports outpatient wound culture with MRSA. Has leukocytosis and was tachycardic. Previous cultures from 2011 showed pansensitive MSSA and pseudomonas. Current cultures growing staph aureus, group A beta hemolytic strep , Providencia Stuartii and Proteus Mirabilis. Doppler negative for DVT. BLE cellulitis w/ lymphedema - improving - wound care w/ dressing changes. - appreciate ID recs, continue Zyvox and Rocephin. - pain control with a bowel regimen. - elevate legs chronic renal insufficiency -RF has stabilized to new chronic levels w/ Cr 1.71 Bronchitis CXR without any acute abnormality. - Duonebs standing and as needed for now. - incentive spirometry. - Mucinex BID. Hypertension - home lisinopril, spironolactone and Lasix Hyperglycemia No history of diabetes. May be a stress reaction. - 5.8% PPx: Heparin Robert Inman MD Aug 11, 2017 15:41
[2017-08-12] VITALS (8 sets, daily range): BP systolic 127–173; BP diastolic 64–82; PULSE 89–112; RESP 20–21; TEMP 97.4–98.8; O2SAT 92–100
[2017-08-12] MEDS: ACETAMINOPHEN/HYDROcodone 325 MG/7.5 MG TAB PO PRN ×5 (02:02→18:58)
[2017-08-12] MEDS: RESP: ALBUTEROL 2.5 MG/IPRATROPIUM 0.5 MG NEB (SCH) NEB (08:03)
[2017-08-12] MEDS: DOCUSATE SODIUM 50 MG/SENNA 8.6 MG TAB PO SCH ×2 (09:00→20:39)
[2017-08-12] MEDS: FUROSEMIDE 40 MG TAB PO SCH (09:47)
[2017-08-12] MEDS: guaiFENesin E.R. 600 MG TAB PO SCH ×2 (09:47→20:39)
[2017-08-12] MEDS: LINEZOLID 600 MG PREMIX 300 ML IV SCH ×2 (09:48→20:39)
[2017-08-12] MEDS: SPIRONOLACTONE 25 MG TAB PO SCH (09:48)
[2017-08-12] MEDS: LISINOPRIL 10 MG TAB PO SCH (09:48)
[2017-08-12] MEDS: HEPARIN SODIUM - SQ 10,000 UNITS/ML VIAL SQ SCH ×2 (09:48→20:39)
[2017-08-12] MEDS: SODIUM CHLORIDE 0.9% FLUSH 10 ML FLUSH IV FLUSH SCH ×2 (09:49→20:39)
--- NOTE | 2017-08-12 11:39 | HHI.PR ---
Subjective Remarks Nursing reports no acute setbacks since last night. Patient says his pain is improving and his legs. Objective Vital Signs Date Time Temp Pulse Resp B/P (MAP) Pulse Ox O2 Delivery O2 Flow Rate FiO2 08/12/17 08:03 100 21 08/12/17 08:00 97.4 89 20 144/82 (102) 93 08/12/17 08:00 96 Room Air 21 08/12/17 07:10 18 08/12/17 04:00 Room Air 08/12/17 04:00 98.4 98 20 173/76 (108) 93 08/12/17 00:53 150/72 (98) 08/12/17 00:00 Room Air 08/11/17 21:52 95 08/11/17 21:08 156/82 (106) 08/11/17 20:40 Room Air 08/11/17 20:00 98.8 95 20 162/70 (100) 94 08/11/17 16:00 98.6 103 20 147/78 (101) 94 08/11/17 12:00 98.4 100 20 145/67 (93) 99 I/O 08/11/17 08/11/17 08/11/17 08/12/17 08/12/17 08/12/17 07:00 15:00 23:00 07:00 15:00 23:00 Intake Total 300 ml 300 ml 400 ml Output Total 200 ml 1600 ml 300 ml 800 ml Balance 100 ml -1300 ml 100 ml -800 ml IV Total 300 ml 300 ml 400 ml Output Urine Total 200 ml 1600 ml 300 ml 800 ml # Bowel Movements 1 0 Result Diagram: 08/09/17 1128 08/09/17 1128 Objective Remarks Bilateral lower extremities wrapped, legs are indurated w/ chronic skin changes , right espinal with anterior wound lesion that is dressed, decreased TTP over BL calves (mild today) compared to yesterday Otherwise in no acute distress, unlabored breathing A/P Assessment and Plan Acute right lower extremity cellulitis on chronic bilateral lymphedema/ Sepsis The patient has significant venous stasis and has multiple nondraining skin ulcers. Reports outpatient wound culture with MRSA. Has leukocytosis and was tachycardic. Previous cultures from 2011 showed pansensitive MSSA and pseudomonas. Current cultures growing staph aureus, group A beta hemolytic strep , Providencia Stuartii and Proteus Mirabilis. Doppler negative for DVT. BLE cellulitis w/ lymphedema - improving - wound care w/ dressing changes. - appreciate ID recs, continue Zyvox and Rocephin. - pain control with a bowel regimen. - elevate legs chronic renal insufficiency Hypertension -Will be difficult to control given CKD, continue home lisinopril, spironolactone and Lasix Hyperglycemia No history of diabetes. May be a stress reaction. - 5.8% PPx: Heparin Robert Inman MD Aug 12, 2017 11:39
[2017-08-12] MEDS: cefTRIAXone INJ 1,000 MG in SODIUM CHLORIDE 0.9% INJ 100 ML IV SCH (14:07)
[2017-08-13] VITALS: BP 148/81; PULSE 100; RESP 22; TEMP 98.4; O2SAT 97
[2017-08-13 04:00] VITALS: BP 160/70; PULSE 99; RESP 18; TEMP 98.9; O2SAT 95
[2017-08-13] MEDS: ACETAMINOPHEN/HYDROcodone 325 MG/7.5 MG TAB PO PRN ×4 (07:33→22:00)
[2017-08-13] MEDS: SODIUM CHLORIDE 0.9% FLUSH 10 ML FLUSH IV FLUSH SCH ×2 (09:00→21:57)
[2017-08-13] MEDS: guaiFENesin E.R. 600 MG TAB PO SCH ×2 (09:00→21:57)
[2017-08-13] MEDS: DOCUSATE SODIUM 50 MG/SENNA 8.6 MG TAB PO SCH ×2 (09:00→21:00)
[2017-08-13 09:19] VITALS: BP 160/78; PULSE 102; RESP 24; TEMP 97.9; O2SAT 92
[2017-08-13] MEDS: LINEZOLID 600 MG PREMIX 300 ML IV SCH ×2 (09:55→21:56)
[2017-08-13] MEDS: HEPARIN SODIUM - SQ 10,000 UNITS/ML VIAL SQ SCH ×2 (09:55→21:58)
[2017-08-13] MEDS: FUROSEMIDE 40 MG TAB PO SCH (09:56)
[2017-08-13] MEDS: SPIRONOLACTONE 25 MG TAB PO SCH (09:56)
[2017-08-13] MEDS: LISINOPRIL 10 MG TAB PO SCH (09:56)
--- NOTE | 2017-08-13 13:18 | HHI.IDPN ---
Subjective Subjective Remarks is an 82-year-old male with a medical history significant for osteoarthritis, prostate cancer, hypertension, chronic lower extremity edema presents with complaint of infection involving bilateral lower extremities. Patient is a very poor historian and not able to elaborate on the history. He reports he normally gets these infections once a year. He does not follow with a primary care physician. He reports that they just have been getting worse. He is experiencing significant pain with walking. There has been erythema and warmth. Subjective fevers at home. He states his legs have been swelling intermittently. Patient denies shortness of breath or chest pain. Hospital course: No fevers, No rash, No diarrhea. RLE with significant swelling , blisters with discharge, erythema and warmth noted. ID consulted for cellulitis not improving despite antibiotics. Overnight events reviewed No fevers No rash No diarrhea Complains of pain in right foot, unable to bear weight. Erythema appears improved. Antibiotics Ceftriaxone IV Vanco IV Lines Line sites with no e.o infection Past Medical History Hypertension Osteoarthritis Prostate cancer Bilateral chronic lower extremity edema/venous stasis changes. Hyperkeratosis of skin Lymphedema Appendectomy Prostate cancer surgery Left knee surgery Back surgery Allergies: Coded Allergies: No Known Allergies (Unverified , 08/05/17) Objective . Vital Signs Date Time Temp Pulse Resp B/P (MAP) Pulse Ox O2 Delivery O2 Flow Rate FiO2 08/13/17 09:19 97.9 102 24 160/78 (105) 92 08/13/17 04:00 98.9 99 18 160/70 (100) 95 08/13/17 00:00 98.4 100 22 148/81 (103) 97 08/12/17 20:00 Room Air 08/12/17 20:00 98.8 112 21 144/72 (96) 95 08/12/17 18:08 92 08/12/17 16:00 98.5 92 20 145/75 (98) 92 08/13/17 08/13/17 08/14/17 15:00 23:00 07:00 Output Total 500 ml Balance -500 ml Output Urine Total 500 ml Imaging Last Impressions Lower Extremity Ultrasound 08/06/17 0000 Signed Impressions: Service Date/Time: Sunday, August 06, 2017 17:41 - CONCLUSION: No DVT is identified within the right lower extremity. Quintin Bro MD Chest X-Ray 08/05/17 6286 Signed Impressions: Service Date/Time: Saturday, August 05, 2017 22:58 - CONCLUSION: 1. Minimal basilar atelectasis. Theodore Rivera MD Physical Exam GENERAL: Obese, well-developed patient, in no apparent distress. SKIN: No rashes, ecchymoses or lesions. Cool and dry. HEAD: Atraumatic. Normocephalic. No temporal or scalp tenderness. EYES: Pupils equal round and reactive. Extraocular motions intact. No scleral icterus. No injection or drainage. ENT: Nose without bleeding, purulent drainage or septal hematoma. Throat without erythema, tonsillar hypertrophy or exudate. Uvula midline. Airway patent. NECK: Trachea midline. Supple, nontender, no meningeal signs. CARDIOVASCULAR: Regular rate and rhythm without murmurs, gallops, or rubs. RESPIRATORY: Clear to auscultation. Breath sounds equal bilaterally. No wheezes , rales, or rhonchi. GASTROINTESTINAL: Abdomen soft, non-tender, nondistended. Obese MUSCULOSKELETAL: RLE with significant swelling, erythema, blisters with oozing noted. Erythema appears improved but not resolved. Tenderness on the arch of foot. Thick skin could not appreciate warmth. NEUROLOGICAL: Awake and alert. Grossly non focal Psych cooperative IV line sites with no e.o infection Assessment & Plan Remarks Bilateral LE cellulitis Right more than left. ? Right foot tenderness excruciating ? osteomyelitis or plantar abscess. Lymphedema bilateral LE Acute renal failure Morbid Obesity (BMI 37.6 kg/m2) Recs Continue Ceftriaxone IV Continue Zyvox IV Check MRI non contrast right foot for abscess. Check WBC scan rt foot for possible osteomyelitis. Follow cultures Follow clinically d/w Bessie Suarez MD Aug 13, 2017 13:18
[2017-08-13] MEDS: cefTRIAXone INJ 1,000 MG in SODIUM CHLORIDE 0.9% INJ 100 ML IV SCH (13:45)
--- NOTE | 2017-08-13 15:09 | HHI.PR ---
Subjective Remarks Nursing reports no acute setbacks since last night. Patient says that his pain is actually worse today, but still wants to go home. Objective Vital Signs Date Time Temp Pulse Resp B/P (MAP) Pulse Ox O2 Delivery O2 Flow Rate FiO2 08/13/17 09:19 97.9 102 24 160/78 (105) 92 08/13/17 07:15 Room Air 08/13/17 04:00 98.9 99 18 160/70 (100) 95 08/13/17 00:00 98.4 100 22 148/81 (103) 97 08/12/17 20:00 Room Air 08/12/17 20:00 98.8 112 21 144/72 (96) 95 08/12/17 18:08 92 08/12/17 16:00 98.5 92 20 145/75 (98) 92 I/O 08/12/17 08/12/17 08/12/17 08/13/17 08/13/17 08/13/17 07:00 15:00 23:00 07:00 15:00 23:00 Intake Total 880 ml 240 ml Output Total 800 ml 800 ml 500 ml Balance -800 ml 880 ml -560 ml -500 ml Intake Oral 480 ml 240 ml IV Total 400 ml Output Urine Total 800 ml 800 ml 500 ml # Voids 4 # Bowel Movements 0 3 Result Diagram: 08/09/17 1128 08/09/17 1128 Objective Remarks Bilateral lower extremities wrapped, legs are indurated w/ chronic skin changes , right espinal with anterior wound lesion that is dressed, decreased TTP over BL calves (mild today) compared to yesterday. Has very faint erythema on the medial right thigh. Otherwise in no acute distress, unlabored breathing A/P Assessment and Plan Acute right lower extremity cellulitis on chronic bilateral lymphedema/ Sepsis The patient has significant venous stasis and has multiple nondraining skin ulcers. Reports outpatient wound culture with MRSA. Has leukocytosis and was tachycardic. Previous cultures from 2011 showed pansensitive MSSA and pseudomonas. Current cultures growing staph aureus, group A beta hemolytic strep , Providencia Stuartii and Proteus Mirabilis. Doppler negative for DVT. BLE cellulitis w/ lymphedema - improving - wound care w/ dressing changes. - appreciate ID recs, continue Zyvox and Rocephin. - pain control with a bowel regimen. - elevate legs chronic renal insufficiency Hypertension -Will be difficult to control given CKD, continue home lisinopril, spironolactone and Lasix Hyperglycemia No history of diabetes. May be a stress reaction. - 5.8% PPx: Heparin D/w Dr. Chicas, osteomyelitis workup. Robert Inman MD Aug 13, 2017 15:09
[2017-08-13] MEDS ORDERED: GADODIAMIDE PF 287 MG/ML 5 ML VIAL (for RAD MRI) IV PUSH ONE (17:05)
--- NOTE | 2017-08-13 18:28 | RADRPT ---
EXAM DATE/TIME: 08/13/2017 17:42 [facility] COMPARISON: No previous studies available for comparison. INDICATIONS : Cellulitis, additional views to MRI. MEDICAL HISTORY : None. SURGICAL HISTORY : None. ENCOUNTER: Initial ACUITY: 1 day PAIN SCORE: 3/10 LOCATION: Right foot. FINDINGS: Three view examination of the right foot demonstrates prominent erosions of the first metatarsal head and to lesser degree the base of the first proximal phalanx. This also some erosive change at the me dial distal aspect of the fifth metatarsal head. There is some narrowing of the first MTP joint. Ther e is a hallux valgus deformity. Periosteal reaction is not seen. There is diffuse soft tissue swellin g. There is spur formation at the plantar aponeurosis attachment site at the inferior calcaneus. Mild spurring is seen at the dorsal midfoot. CONCLUSION: Erosive change at the first MTP joint and to lesser degree the metatarsal head region most suggestive of gout. There is diffuse soft tissue swelling. Quintin Olmos MD on August 13, 2017 at 18:23 Board Certified Radiologist. This report was verified electronically.
[2017-08-13 19:38] VITALS: BP 131/62; PULSE 100; RESP 18; TEMP 98; O2SAT 95
--- NOTE | 2017-08-13 19:41 | RADRPT ---
EXAM DATE/TIME: 08/13/2017 16:35 [facility] COMPARISON: FOOT RIGHT COMPLETE ([id number]), August 13, 2017, 17:42. INDICATIONS : Osteomyelitis. Abscess. CONTRAST: 26 cc Omniscan (gadodiamide) IV MEDICAL HISTORY : Carcinoma, prostate. SURGICAL HISTORY : Appendectomy. Fusion, lumbar. Total knee replacement, left. ENCOUNTER: Initial ACUITY: 1 day PAIN SCORE: 4/10 LOCATION: Distal metatarsals. TECHNIQUE: Multiplanar, multisequence MRI examination was performed without contrast and after th e intravenous administration of gadolinium. FINDINGS: There is thickening of the synovium and soft tissues around the first metatarsal head. There are erosive changes seen in this region. There is edema seen throughout the first metatarsal head extending back to the base. On the non fat suppressed coronal T1 weighted images there is a sug gestion of a sclerotic rim within the medullary space which could suggest an underlying infarct. The re are some minimal erosive changes at the base of the first proximal phalanx. The remaining bony st ructures appear grossly intact. On the plain film examination there have been some questionable eros clover changes at the fifth metatarsal head. The fifth metatarsal head is more comprehensively seen on this MRI examination and appears grossly intact. No focal fluid collection is seen. There is edema seen throughout the foot. There is hypertrophic change seen at the posterior calcaneus at the Achill es plantar aponeurosis attachment sites. CONCLUSION: 1. Abnormal signal seen at the first metatarsal being worse at the metatarsal head. There are multip le erosions and thickening of the synovium. This likely is either secondary to gout or potentially i nflammatory arthritis in the correct clinical situation. 2. The edema seen throughout the first metatarsal could be in reaction to gout or be inflammatory. O n the T1 weighted images there is some questionable low signal seen within the first metatarsal shaft which raises the possibility of a previous infarct. Quintin Olmos MD on August 13, 2017 at 19:12 Board Certified Radiologist. This report was verified electronically.
[2017-08-13 20:00] VITALS: BP 139/58; PULSE 75; RESP 20; TEMP 98; O2SAT 94
--- NOTE | 2017-08-13 21:51 | PD.CONS ---
History of Present Illness Service Podiatry Consult Requested By Primary Care Physician Unknown Diagnoses: History of Present Illness is an 82-year-old male with a medical history significant for osteoarthritis, prostate cancer, hypertension, chronic lower extremity edema presents with complaint of chronic wounds to both legs. Podiatry consulted to evaluate for possible osteomyelitis R foot due to joint destruction, pain, and MRI findings. Patient is a very poor historian and not able to elaborate on the history, but says that he does have gout and has had it for many years and it is very painful and comes and goes. Past Family Social History Allergies: Coded Allergies: No Known Allergies (Unverified , 08/05/17) Past Medical History Hypertension Osteoarthritis Prostate cancer Bilateral chronic lower extremity edema/venous stasis changes. Hyperkeratosis of skin Lymphedema Past Surgical History Appendectomy Prostate cancer surgery Left knee surgery Back surgery Active Ordered Medications Current Medications Medications (Trade) Dose Ordered Sig/John Route Start Time Stop Time Status Last Admin (NS Flush) 2 ml UNSCH PRN IV FLUSH 08/06/17 01:00 (NS Flush) 2 ml BID IV FLUSH 08/06/17 09:00 08/13/17 09:00 (Tylenol) 650 mg Q4H PRN PO 08/06/17 01:00 (Zofran Inj) 4 mg Q6H PRN IVP 08/06/17 01:00 08/06/17 12:53 (Heparin Inj) 5,000 units Q12H SQ 08/06/17 09:00 08/13/17 09:55 (Narcan Inj) 0.4 mg UNSCH PRN IV PUSH 08/06/17 01:00 (Milk Of Magnesia Liq) 30 ml Q12H PRN PO 08/06/17 01:00 (Senokot) 17.2 mg Q12H PRN PO 08/06/17 01:00 (Dulcolax Supp) 10 mg DAILY PRN RECTAL 08/06/17 01:00 (Lactulose Liq) 30 ml DAILY PRN PO 08/06/17 01:00 (Kamryn-Colace) 1 tab BID PO 08/07/17 09:30 (Duoneb Neb) 1 ampule Q2HR NEB PRN NEB 08/08/17 10:00 (Mucinex Er) 600 mg BID PO 08/08/17 10:00 08/13/17 09:00 Ceftriaxone Sodium 1000 mg/ Sodium Chloride 100 ml @ 200 mls/hr Q24H IV 08/08/17 14:00 08/13/17 13:45 Linezolid 300 ml @ 300 mls/hr Q12H IV 08/08/17 21:00 08/13/17 09:55 ([place] 7.5-325 Mg) 1 tab Q4H PRN PO 08/09/17 10:00 08/13/17 17:55 (Lasix) 40 mg DAILY PO 08/09/17 11:00 08/13/17 09:56 (Prinivil) 10 mg DAILY PO 08/09/17 11:00 08/13/17 09:56 (Aldactone) 25 mg DAILY PO 08/09/17 11:00 08/13/17 09:56 Physical Exam Vital Signs Vital Signs Date Time Temp Pulse Resp B/P (MAP) Pulse Ox O2 Delivery O2 Flow Rate FiO2 08/13/17 19:38 98.0 100 18 131/62 (85) 95 08/13/17 09:19 97.9 102 24 160/78 (105) 92 08/13/17 07:15 Room Air 08/13/17 04:00 98.9 99 18 160/70 (100) 95 08/13/17 00:00 98.4 100 22 148/81 (103) 97 Physical Exam R foot with pain to 1st MTP joint area. No open lesion noted. Mildly warm and painful to touch, mild edema. No purulence. Mild erythema. Laboratory Date/Time Source Procedure Growth Status 08/05/17 23:00 Blood Peripheral Aerobic Blood Culture - Final NO GROWTH IN 5 DAYS Complete 08/05/17 23:00 Blood Peripheral Anaerobic Blood Culture - Final NO GROWTH IN 5 DAYS Complete 08/05/17 22:50 Wound Skin Gram Stain - Final Complete 08/05/17 22:50 Wound Culture - Final S. Aureus Mrsa Group A Beta Strep Providencia Stuartii Proteus Mirabilis Complete Result Diagram: 08/09/17 1128 08/09/17 1128 Imaging Last 72 hours Impressions Foot X-Ray 08/13/17 0000 Signed Impressions: Service Date/Time: Sunday, August 13, 2017 17:42 - CONCLUSION: Erosive change at the first MTP joint and to lesser degree the metatarsal head region most suggestive of gout. There is diffuse soft tissue swelling. Quintin Olmos MD Assessment and Plan Assessment and Plan Gout R 1st MTP joint Recommend surgical shoe R foot to help reduce motion and pain at 1st MTP joint. Defer to medicine for medical treatment for gout/symptoms to reduce pain/ inflammation Follow up in clinic upon d/c. Podiatry signing off. Thank you for consultation Colin Marie DPM Aug 13, 2017 21:51
[2017-08-14] VITALS: BP 159/72; PULSE 93; RESP 18; TEMP 97.9; O2SAT 92
[2017-08-14] MEDS: ACETAMINOPHEN/HYDROcodone 325 MG/7.5 MG TAB PO PRN ×4 (02:29→16:58)
[2017-08-14 04:00] VITALS: BP 157/82; PULSE 93; RESP 20; TEMP 98.5; O2SAT 93
[2017-08-14 08:00] VITALS: BP 163/74; PULSE 91; RESP 20; TEMP 98.8; O2SAT 92
[2017-08-14] MEDS: HEPARIN SODIUM - SQ 10,000 UNITS/ML VIAL SQ SCH ×2 (09:00→21:54)
[2017-08-14] MEDS: DOCUSATE SODIUM 50 MG/SENNA 8.6 MG TAB PO SCH ×2 (10:26→21:00)
[2017-08-14] MEDS: SPIRONOLACTONE 25 MG TAB PO SCH (10:26)
[2017-08-14] MEDS: SODIUM CHLORIDE 0.9% FLUSH 10 ML FLUSH IV FLUSH SCH ×2 (10:27→21:54)
[2017-08-14] MEDS: LISINOPRIL 10 MG TAB PO SCH (10:27)
[2017-08-14] MEDS: FUROSEMIDE 40 MG TAB PO SCH (10:27)
[2017-08-14] MEDS: guaiFENesin E.R. 600 MG TAB PO SCH ×2 (10:28→21:52)
[2017-08-14] MEDS: LINEZOLID 600 MG PREMIX 300 ML IV SCH ×2 (10:29→21:54)
[2017-08-14] MEDS ORDERED: MORPHINE SULFATE 4 MG/ML INJ IV PUSH ONE (11:45)
[2017-08-14 12:00] VITALS: BP 157/77; PULSE 99; RESP 20; TEMP 98.5; O2SAT 95
[2017-08-14] MEDS: cefTRIAXone INJ 1,000 MG in SODIUM CHLORIDE 0.9% INJ 100 ML IV SCH (14:23)
--- NOTE | 2017-08-14 15:08 | HHI.IDPN ---
Subjective Subjective Remarks is an 82-year-old male with a medical history significant for osteoarthritis, prostate cancer, hypertension, chronic lower extremity edema presents with complaint of infection involving bilateral lower extremities. Patient is a very poor historian and not able to elaborate on the history. He reports he normally gets these infections once a year. He does not follow with a primary care physician. He reports that they just have been getting worse. He is experiencing significant pain with walking. There has been erythema and warmth. Subjective fevers at home. He states his legs have been swelling intermittently. Patient denies shortness of breath or chest pain. Hospital course: No fevers, No rash, No diarrhea. RLE with significant swelling , blisters with discharge, erythema and warmth noted. ID consulted for cellulitis not improving despite antibiotics. Overnight events reviewed NPO per RN per OR. d.w no plans for surgery. No fevers No rash No diarrhea Antibiotics Ceftriaxone IV Zyvox IV Lines Line sites with no e.o infection Past Medical History Hypertension Osteoarthritis Prostate cancer Bilateral chronic lower extremity edema/venous stasis changes. Hyperkeratosis of skin Lymphedema Appendectomy Prostate cancer surgery Left knee surgery Back surgery Allergies: Coded Allergies: No Known Allergies (Unverified , 08/05/17) Objective . Vital Signs Date Time Temp Pulse Resp B/P (MAP) Pulse Ox O2 Delivery O2 Flow Rate FiO2 08/14/17 12:00 98.5 99 20 157/77 (103) 95 08/14/17 08:00 98.8 91 20 163/74 (103) 92 08/14/17 04:00 98.5 93 20 157/82 (107) 93 08/14/17 00:00 97.9 93 18 159/72 (101) 92 08/13/17 20:30 Room Air 08/13/17 20:00 98.0 75 20 139/58 (85) 94 08/13/17 19:38 98.0 100 18 131/62 (85) 95 08/14/17 08/14/17 08/15/17 15:00 23:00 07:00 Intake Total 300 ml Balance 300 ml IV Total 300 ml . Laboratory Tests Test 08/13/17 22:04 08/14/17 11:28 C-Reactive Protein 18.00 MG/DL Uric Acid 8.7 MG/DL Imaging Last Impressions Lower Extremity Ultrasound 08/06/17 0000 Signed Impressions: Service Date/Time: Sunday, August 06, 2017 17:41 - CONCLUSION: No DVT is identified within the right lower extremity. Quintin Bro MD Chest X-Ray 08/05/17 2241 Signed Impressions: Service Date/Time: Saturday, August 05, 2017 22:58 - CONCLUSION: 1. Minimal basilar atelectasis. Theodore Rivera MD Physical Exam GENERAL: Obese, well-developed patient, in no apparent distress. SKIN: No rashes, ecchymoses or lesions. Cool and dry. HEAD: Atraumatic. Normocephalic. No temporal or scalp tenderness. EYES: Pupils equal round and reactive. Extraocular motions intact. No scleral icterus. No injection or drainage. ENT: Nose without bleeding, purulent drainage or septal hematoma. Throat without erythema, tonsillar hypertrophy or exudate. Uvula midline. Airway patent. NECK: Trachea midline. Supple, nontender, no meningeal signs. CARDIOVASCULAR: Regular rate and rhythm without murmurs, gallops, or rubs. RESPIRATORY: Clear to auscultation. Breath sounds equal bilaterally. No wheezes , rales, or rhonchi. GASTROINTESTINAL: Abdomen soft, non-tender, nondistended. Obese MUSCULOSKELETAL: RLE with significant swelling, erythema, blisters with oozing noted. Erythema appears improved but not resolved. Tenderness on the arch of foot. Thick skin could not appreciate warmth. NEUROLOGICAL: Awake and alert. Grossly non focal Psych cooperative IV line sites with no e.o infection Assessment & Plan Remarks Bilateral LE cellulitis Right more than left. ? Right foot tenderness excruciating ? osteomyelitis or plantar abscess. Lymphedema bilateral LE Acute renal failure Morbid Obesity (BMI 37.6 kg/m2) Hyperuricemia Gouty arthritis. Recs Continue Ceftriaxone IV Continue Zyvox IV Reviewed MRI non contrast right foot for abscess. Inflammatory arthritis/gout. Uric acid checked and elevated. D.w to add steroids. Creatinine elevated. Follow cultures Follow clinically d/w Bessie Suarez MD Aug 14, 2017 15:08
[2017-08-14] MEDS ORDERED: COLCHICINE 0.6 MG TAB PO ONE ×2 (15:15→16:15)
--- NOTE | 2017-08-14 15:48 | HHI.PR ---
Subjective Remarks Nursing reports no acute setbacks since last night. Patient says that his pain is slightly better today. Objective Vital Signs Date Time Temp Pulse Resp B/P (MAP) Pulse Ox O2 Delivery O2 Flow Rate FiO2 08/14/17 12:00 98.5 99 20 157/77 (103) 95 08/14/17 08:00 98.8 91 20 163/74 (103) 92 08/14/17 04:00 98.5 93 20 157/82 (107) 93 08/14/17 00:00 97.9 93 18 159/72 (101) 92 08/13/17 20:30 Room Air 08/13/17 20:00 98.0 75 20 139/58 (85) 94 08/13/17 19:38 98.0 100 18 131/62 (85) 95 I/O 08/13/17 08/13/17 08/13/17 08/14/17 08/14/17 08/14/17 07:00 15:00 23:00 07:00 15:00 23:00 Intake Total 240 ml 300 ml 360 ml 300 ml 100 ml Output Total 800 ml 500 ml 1500 ml Balance -560 ml -500 ml 300 ml -1140 ml 300 ml 100 ml Intake Oral 240 ml 360 ml IV Total 300 ml 300 ml 100 ml Output Urine Total 800 ml 500 ml 1500 ml # Bowel Movements 3 0 Objective Remarks Bilateral lower extremities wrapped, legs are indurated w/ chronic skin changes , right espinal with anterior wound lesion that is dressed, decreased TTP over BL calves (mild today) compared to yesterday. No erythema is noted on the medial right thigh today. Has moderate tenderness to deep palpation diffusely over the right foot, none on the left A/P Assessment and Plan Acute right lower extremity cellulitis on chronic bilateral lymphedema/ Sepsis The patient has significant venous stasis and has multiple nondraining skin ulcers. Reports outpatient wound culture with MRSA. Has leukocytosis and was tachycardic. Previous cultures from 2011 showed pansensitive MSSA and pseudomonas. Current cultures growing staph aureus, group A beta hemolytic strep , Providencia Stuartii and Proteus Mirabilis. Doppler negative for DVT. BLE cellulitis w/ lymphedema - improving - wound care w/ dressing changes. - appreciate ID recs, continue Zyvox and Rocephin. - pain control with a bowel regimen. - elevate legs Right foot pain - Findings discussed with Dr. Chicas. Gouty arthritis per impression of podiatry and MRI findings, uric acid elevated, will order burst of colchicine, as renal function can tolerate currently chronic renal insufficiency - Monitor Hypertension -Will be difficult to control given CKD, continue home lisinopril, spironolactone and Lasix Hyperglycemia No history of diabetes. May be a stress reaction. - 5.8% PPx: Heparin Discharge Planning possibly in AM Robert Inman MD Aug 14, 2017 15:48
[2017-08-14 16:00] VITALS: BP 152/70; PULSE 111; RESP 20; TEMP 98.4; O2SAT 90
[2017-08-14 19:20] LABS: ALT (GPT) 30 U/L (12-78); ANION GAP 8 MEQ/L (5-15); AST (GOT) 30 U/L (15-37); BICARBONATE 28.5 MEQ/L (21.0-32.0); BLOOD UREA NITROGEN 8 MG/DL (7-18); CHLORIDE 98 MEQ/L (98-107); POTASSIUM 3.6 MEQ/L (3.5-5.1); SODIUM (NA) 134 MEQ/L (136-145)
[2017-08-14 19:27] LABS: ALKALINE PHOSPHATASE 88 U/L (45-117); TOTAL BILIRUBIN ADULT 0.6 MG/DL (0.2-1.0)
[2017-08-14 20:26] VITALS: BP 157/69; PULSE 101; RESP 20; TEMP 98.1; O2SAT 93
[2017-08-15] VITALS (7 sets, daily range): BP systolic 143–185; BP diastolic 70–81; PULSE 86–103; RESP 18–20; TEMP 97.8–98.6; O2SAT 93–100
[2017-08-15 04:10] LABS: HEMATOCRIT 31.9 % (39.0-51.0); MEAN CELL VOLUME 84.9 FL (80.0-100.0); MEAN CORPUSCULAR HEMOGLOBIN 28.5 PG (27.0-34.0); MEAN CORPUSCULAR HGB CONC 33.6 % (32.0-36.0); PLATELET COUNT 235 TH/MM3 (150-450); RED BLOOD COUNT 3.76 MIL/MM3 (4.50-5.90); RED CELL DISTRIBUTION WIDTH 17.5 % (11.6-17.2); WHITE BLOOD COUNT 10.9 TH/MM3 (4.0-11.0)
[2017-08-15 04:12] LABS: HEMO FLAGS AUTO DIFF
[2017-08-15 08:00] LABS: METAMYELOCYTES 1 % (0-1); NEUTROPHIL # MANUAL DIFF 10.1 TH/MM3 (1.8-7.7); PLATELET ESTIMATE SMEAR NORMAL (NORMAL); PLATELET MORPHOLOGY NORMAL (NORMAL); POLYS (SEG NEUTROPHILS) 92 % (16-70); TOXIC VACUOLATION PRESENT (NONE SEEN); WBC DIFF SAMPLE 100
[2017-08-15 08:01] LABS: SCAN/DIFF FINAL DIFF MANUAL
[2017-08-15] MEDS: FUROSEMIDE 40 MG TAB PO SCH (10:16)
[2017-08-15] MEDS: SODIUM CHLORIDE 0.9% FLUSH 10 ML FLUSH IV FLUSH SCH ×2 (10:16→21:53)
[2017-08-15] MEDS: SPIRONOLACTONE 25 MG TAB PO SCH (10:16)
[2017-08-15] MEDS: LINEZOLID 600 MG PREMIX 300 ML IV SCH ×2 (10:16→21:53)
[2017-08-15] MEDS: HEPARIN SODIUM - SQ 10,000 UNITS/ML VIAL SQ SCH ×2 (10:17→21:53)
[2017-08-15] MEDS: DOCUSATE SODIUM 50 MG/SENNA 8.6 MG TAB PO SCH ×2 (10:17→21:00)
[2017-08-15] MEDS: guaiFENesin E.R. 600 MG TAB PO SCH ×2 (10:17→21:52)
[2017-08-15] MEDS: LISINOPRIL 10 MG TAB PO SCH (10:17)
--- NOTE | 2017-08-15 10:21 | RADRPT ---
EXAM DATE/TIME: 08/14/2017 12:22 CORRE[place] Corrected on: August 15, 2017; Corrected radiation dose [facility] COMPARISON: MRI FOOT RIGHT W & W/O CONTRAST, August 13, 2017, 16:35. INDICATIONS : Bilateral foot infection. DOSE: 18.5 mCi Tc99m Ceretec labeled white blood cells IV SPECT IMAGIN hrs, 20 hrs IMAGNG: SPECT/CT imaging with fusion was performed. RADIATION DOSE: 1.91 CTDIvol (mGy) MEDICAL HISTORY : Hypertension. Carcinoma, prostate. SURGICAL HISTORY : Prostatectomy. Left knee surgery. ENCOUNTER: Initial ACUITY: 2 months PAIN SCALE: 6/10 LOCATION: Bilateral Foot. TECHNIQUE: Following the in vitro labeling of autologous white cells and reinjection, whole body scan was perfor med at the specified times. SPECT imaging was performed at the specified time in sagittal, axial and coronal planes. Attenuation correction was performed with the computed tomography and both the atten uation correction and non-attenuation corrected data sets were reviewed. FINDINGS: There is extensive edema in the subcutaneous tissues bilaterally characteristic of cellulitis. There is bony destruction involving the head of the first metatarsal on the right as well as the proximal p halanx characteristic of ostomy lies. On the left there is soft to infection dorsal to the first meta tarsal but no evidence of osteomyelitis. CONCLUSION: 1. Osteomyelitis involving the first metatarsal head and proximal phalanx on the right Tay Rendon MD on August 15, 2017 at 10:07 Board Certified Radiologist. This report was verified electronically.
[2017-08-15] MEDS: cefTRIAXone INJ 1,000 MG in SODIUM CHLORIDE 0.9% INJ 100 ML IV SCH (14:00)
--- NOTE | 2017-08-15 17:09 | HHI.PR ---
Subjective Remarks Nursing reports no acute setbacks since last night. White blood cell scan report indicates osteomyelitis . Pt says his pain is largely unchanged. Objective Vital Signs Date Time Temp Pulse Resp B/P (MAP) Pulse Ox O2 Delivery O2 Flow Rate FiO2 08/15/17 16:00 98.0 86 20 148/70 (96) 93 08/15/17 12:00 98.5 93 20 143/75 (97) 94 08/15/17 10:52 93 08/15/17 08:00 93 Room Air 08/15/17 08:00 98.3 102 20 156/72 (100) 95 08/15/17 04:00 Room Air 08/15/17 03:50 98.6 95 20 156/71 (99) 93 08/15/17 00:41 98.4 103 20 185/81 (115) 100 08/15/17 00:00 Room Air 08/14/17 20:26 98.1 101 20 157/69 (98) 93 08/14/17 20:00 Room Air I/O 08/14/17 08/14/17 08/14/17 08/15/17 08/15/17 08/15/17 07:00 15:00 23:00 07:00 15:00 23:00 Intake Total 360 ml 300 ml 340 ml 300 ml Output Total 1500 ml 825 ml Balance -1140 ml 300 ml -485 ml 300 ml Intake Oral 360 ml 240 ml IV Total 300 ml 100 ml 300 ml Output Urine Total 1500 ml 825 ml # Bowel Movements 0 0 Result Diagram: 08/15/17 0345 08/14/17 1827 Imaging Last Impressions Tumor Localization 08/13/17 0000 Signed Impressions: Service Date/Time: Monday, August 14, 2017 12:22 - CONCLUSION: 1. Osteomyelitis involving the first metatarsal head and proximal phalanx on the right Tay Rendon MD Foot X-Ray 08/13/17 0000 Signed Impressions: Service Date/Time: Sunday, August 13, 2017 17:42 - CONCLUSION: Erosive change at the first MTP joint and to lesser degree the metatarsal head region most suggestive of gout. There is diffuse soft tissue swelling. Quintin Olmos MD Foot MRI 08/13/17 0000 Signed Impressions: Service Date/Time: Sunday, August 13, 2017 16:35 - CONCLUSION: 1. Abnormal signal seen at the first metatarsal being worse at the metatarsal head. There are multiple erosions and thickening of the synovium. This likely is either secondary to gout or potentially inflammatory arthritis in the correct clinical situation. 2. The edema seen throughout the first metatarsal could be in reaction to gout or be inflammatory. On the T1 weighted images there is some questionable low signal seen within the first metatarsal shaft which raises the possibility of a previous infarct. Quintin Olmos MD Lower Extremity Ultrasound 08/06/17 0000 Signed Impressions: Service Date/Time: Sunday, August 06, 2017 17:41 - CONCLUSION: No DVT is identified within the right lower extremity. Quintin Bro MD Chest X-Ray 08/05/17 2241 Signed Impressions: Service Date/Time: Saturday, August 05, 2017 22:58 - CONCLUSION: 1. Minimal basilar atelectasis. Theodore Rivera MD Objective Remarks Bilateral lower extremities wrapped, legs are indurated w/ chronic skin changes , right espinal with anterior wound lesion that is dressed. No erythema is noted on the medial right thigh today. Has moderate tenderness to deep palpation diffusely over the right foot, none on the left A/P Assessment and Plan Acute right lower extremity cellulitis on chronic bilateral lymphedema/ Sepsis The patient has significant venous stasis and has multiple nondraining skin ulcers. Reports outpatient wound culture with MRSA. Has leukocytosis and was tachycardic. Previous cultures from 2011 showed pansensitive MSSA and pseudomonas. Current cultures growing staph aureus, group A beta hemolytic strep , Providencia Stuartii and Proteus Mirabilis. Doppler negative for DVT. BLE cellulitis w/ lymphedema - improving - wound care w/ dressing changes. - appreciate ID recs, continue Zyvox and Rocephin. - pain control with a bowel regimen. - elevate legs Right foot pain - No significant improvement with colchicine trial yesterday (with possible gout as etiology) - Possible osteomyelitis as a new problem, relayed to ID, per recs will contact podiatry for potential bone bx. chronic renal insufficiency - Monitor Hypertension -Will be difficult to control given CKD, continue home lisinopril, spironolactone and Lasix Hyperglycemia No history of diabetes. May be a stress reaction. - 5.8% PPx: Heparin Robert Inman MD Aug 15, 2017 17:09
--- NOTE | 2017-08-15 17:24 | PD.POD ---
Subjective Podiatric Problems Chronic bilateral lower extremity ulcerations R foot gout Possible osteomyelitis Past Med/Surg/Social History Social History Smoking Status: Former Smoker Objective Vital Signs Vital Signs Date Time Temp Pulse Resp B/P (MAP) Pulse Ox O2 Delivery O2 Flow Rate FiO2 08/15/17 16:00 98.0 86 20 148/70 (96) 93 08/15/17 12:00 98.5 93 20 143/75 (97) 94 08/15/17 10:52 93 08/15/17 08:00 93 Room Air 08/15/17 08:00 98.3 102 20 156/72 (100) 95 08/15/17 04:00 Room Air 08/15/17 03:50 98.6 95 20 156/71 (99) 93 08/15/17 00:41 98.4 103 20 185/81 (115) 100 08/15/17 00:00 Room Air 08/14/17 20:26 98.1 101 20 157/69 (98) 93 08/14/17 20:00 Room Air Coded Allergies: No Known Allergies (Unverified , 08/05/17) Assessment & Plan A/P Chronic bilateral lower extremity ulcerations R foot gout Possible osteomyelitis Discussed with radiologist via telephone the findings of Ceretec scan. He suggested increased caution and had same concerns about contamination and suggested ordering bilateral foot/ankle MRI for comparison prior to potentially introducing bacteria into gouty area, to compare bilateral sides and findings due to increased uptake also in L hindfoot area that appears more suspicious than R foot findings in his opinion. Ordering MRI R ankle and MRI L foot and ankle with and without contrast for comparison before agreeing to proceed with biopsy. Colin Marie DPM Aug 15, 2017 17:24
[2017-08-15] MEDS ORDERED: GADODIAMIDE PF 287 MG/ML 5 ML VIAL (for RAD MRI) IVCONTRAST ONE (21:51)
[2017-08-15] MEDS: ACETAMINOPHEN/HYDROcodone 325 MG/7.5 MG TAB PO PRN (21:52)
--- NOTE | 2017-08-15 23:04 | RADRPT ---
EXAM DATE/TIME: 08/15/2017 20:19 [facility] COMPARISON: MRI FOOT LEFT W/O CONTRAST, August 15, 2017, 20:19. WBC SPECT CERETEC, August 14, 2017, 12:22. FO OT RIGHT COMPLETE ([id number]), August 13, 2017, 17:42. INDICATIONS : Abscess. CONTRAST: 26 cc Omniscan (gadodiamide) IV MEDICAL HISTORY : Carcinoma, prostate. SURGICAL HISTORY : Appendectomy. Total knee replacement, left. Discectomy, lumbar. ENCOUNTER: Subsequent ACUITY: 1 day PAIN SCORE: 110 LOCATION: Left ankle. TECHNIQUE: Multiplanar, multisequence MRI examination was performed without contrast and after the intravenous a dministration of gadolinium. FINDINGS: Bones of the left ankle and hindfoot are intact and normally aligned. Moderate osteoarthritis with re active appearing marrow edema seen of the posterior facet of the subtalar joint. There is mild osteoa rthritis of the talonavicular and calcaneocuboid joints. Small heel spur and mild proximal plantar fasciitis. There is mild to moderate distal and insertional tendinosis of Achilles. An enthesophyte and mild reactive appearing marrow edema seen of the posteri or calcaneus. Diffuse subcutaneous edema noted. Nothing organized or drainable. There is moderate tendinosis and te nosynovitis of tibialis anterior tendon with some distal longitudinal splitting but no transverse tea r. There is small fluid in the tibialis posterior tendon sheath. Laterally, small fluid also seen in the tendon sheaths of peroneus brevis and longus. CONCLUSION: 1. No abscess or evidence of osteomyelitis of the left ankle or hindfoot. 2. Multifocal tendinopathy as above, mild to moderate of tibialis anterior was longitudinal splitting and mild of tibialis posterior and the peroneal tendons. 3. Mild proximal plantar fasciitis. 4. Mild to moderate distal and insertional tendinosis with enthesopathic changes and reactive marrow edema of Achilles. 5. Generalized subcutaneous edema, nonspecific. No deep ulceration demonstrated. No organized or drai nable fluid. Quintin Gonzalez MD on August 15, 2017 at 22:59 Board Certified Radiologist. This report was verified electronically.
--- NOTE | 2017-08-15 23:28 | RADRPT ---
EXAM DATE/TIME: 08/15/2017 20:19 [facility] COMPARISON: MRI ANKLE LEFT W & W/O CONTRAST, August 15, 2017, 20:19. WBC SPECT CERETEC, August 14, 2017, 12:22 . INDICATIONS : Abscess. MEDICAL HISTORY : Carcinoma, prostate. SURGICAL HISTORY : Fusion, lumbar. Appendectomy. Total knee replacement, left. ENCOUNTER: Initial ACUITY: 1 day PAIN SCORE: 11/21 LOCATION: Left Foot TECHNIQUE: Multiplanar, multisequence MRI examination was performed without contrast. FINDINGS: No fracture or subluxation seen of the bones of the left foot. Lisfranc osteoarthritis is noted, mode rate severity of the second, third and fourth tarsometatarsal joints and generally fairly mild of the first and fifth. There is subchondral cystic change and reactive appearing marrow edema of the secon d and third tarsometatarsal joints. Lisfranc ligament is well seen on series 11 image 11 and intact. Moderate hallux valgus noted and there is severe osteoarthritis of the first metatarsophalangeal join t and sesamoids. Soft tissues medial to the first metatarsal head are indurated and there is an appro ximately 16mm diameter, 8mm deep area of subcortical cystic change/erosion of the first metatarsal he ad, for example series 12 image 15. I don't see any delayed Ceretec uptake in this area on the compar norma WBC scan. Otherwise, there is reactive appearing marrow edema and enhancement of the first metat arsal head and the sesamoids. Diffuse subcutaneous edema. Nothing organized or drainable. CONCLUSION: 1. No abscess or convincing evidence of osteomyelitis of the left midfoot or forefoot. 2. Hallux valgus with degenerative changes of the first metatarsophalangeal joint and sesamoids. Kristan cute appearing and probably noninfectious subcortical cystic change/erosion medially of the first met atarsal head, probably degenerative. Chronic gout would be in the differential. Please see above. 3. Central predominant Lisfranc osteoarthritis. Quintin Gonzlaez MD on August 15, 2017 at 23:18 Board Certified Radiologist. This report was verified electronically.
[2017-08-16 00:30] VITALS: BP 150/67; PULSE 90; RESP 18; TEMP 98.4; O2SAT 98
[2017-08-16] MEDS: ACETAMINOPHEN/HYDROcodone 325 MG/7.5 MG TAB PO PRN ×3 (01:48→23:51)
[2017-08-16 06:00] VITALS: BP 141/69; PULSE 90; RESP 17; TEMP 98.7; O2SAT 94
[2017-08-16 07:55] VITALS: BP 155/69; PULSE 83; RESP 18; TEMP 97.8; O2SAT 96
[2017-08-16] MEDS ORDERED: GADODIAMIDE PF 287 MG/ML 10 ML VIAL (for RAD MRI) IVCONTRAST ONE (11:17)
--- NOTE | 2017-08-16 11:34 | HHI.PR ---
Subjective Remarks Complaining of right ankle pain; the right side is worse compared to the left side. Objective Vitals Vital Signs Date Time Temp Pulse Resp B/P (MAP) Pulse Ox O2 Delivery O2 Flow Rate FiO2 08/16/17 07:55 97.8 83 18 155/69 (97) 96 08/16/17 06:00 98.7 90 17 141/69 (93) 94 08/16/17 04:00 Room Air 08/16/17 00:30 98.4 90 18 150/67 (94) 98 08/16/17 00:00 Room Air 08/15/17 21:00 97.8 98 18 164/79 (107) 97 08/15/17 20:00 Room Air 08/15/17 16:00 98.0 86 20 148/70 (96) 93 08/15/17 12:00 98.5 93 20 143/75 (97) 94 I/O 08/15/17 08/15/17 08/15/17 08/16/17 08/16/17 08/16/17 07:00 15:00 23:00 07:00 15:00 23:00 Intake Total 300 ml 1570 ml 475 ml Output Total 1600 ml 1200 ml Balance 300 ml -30 ml -725 ml Intake Oral 1570 ml 475 ml IV Total 300 ml Output Urine Total 1600 ml 1200 ml # Bowel Movements 4 1 Result Diagram: 08/15/17 0345 08/14/17 1827 Other Results Microbiology Date/Time Source Procedure Growth Status 08/05/17 23:00 Blood Peripheral Aerobic Blood Culture - Final NO GROWTH IN 5 DAYS Complete 08/05/17 23:00 Blood Peripheral Anaerobic Blood Culture - Final NO GROWTH IN 5 DAYS Complete 08/05/17 22:50 Wound Skin Gram Stain - Final Complete 08/05/17 22:50 Wound Culture - Final S. Aureus Mrsa Group A Beta Strep Providencia Stuartii Proteus Mirabilis Complete Imaging Last 48 hours Impressions Foot MRI 08/15/17 0000 Signed Impressions: Service Date/Time: Tuesday, August 15, 2017 20:19 - CONCLUSION: 1. No abscess or convincing evidence of osteomyelitis of the left midfoot or forefoot. 2. Hallux valgus with degenerative changes of the first metatarsophalangeal joint and sesamoids. Nonacute appearing and probably noninfectious subcortical cystic change/erosion medially of the first metatarsal head, probably degenerative. Chronic gout would be in the differential. Please see above. 3. Central predominant Lisfranc osteoarthritis. Quintin Gonzalez MD Ankle MRI 08/15/17 0000 Signed Impressions: Service Date/Time: Tuesday, August 15, 2017 20:19 - CONCLUSION: 1. No abscess or evidence of osteomyelitis of the left ankle or hindfoot. 2. Multifocal tendinopathy as above, mild to moderate of tibialis anterior was longitudinal splitting and mild of tibialis posterior and the peroneal tendons. 3. Mild proximal plantar fasciitis. 4. Mild to moderate distal and insertional tendinosis with enthesopathic changes and reactive marrow edema of Achilles. 5. Generalized subcutaneous edema, nonspecific. No deep ulceration demonstrated. No organized or drainable fluid. Quintin Gonzalez MD Objective Remarks GENERAL: This is a well-nourished, well-developed patient, in no apparent distress. CARDIOVASCULAR: Regular rate and rhythm RESPIRATORY: Clear to auscultation. Breath sounds equal bilaterally. No wheezes , rales, or rhonchi. GASTROINTESTINAL: Abdomen soft, non-tender, nondistended. Normal active bowel sounds MUSCULOSKELETAL: Extremities without clubbing, cyanosis, to pull plus edema, bilateral bandage distal leg NEURO: Alert & Oriented x4 to person, place, time, situation. Moves all ext x4 A/P Problem List: (1) Venous stasis dermatitis of both lower extremities ICD Code: I87.2 - Venous insufficiency (chronic) (peripheral) Status: Chronic (2) Recurrent cellulitis of lower extremity ICD Code: L03.119 - Cellulitis of unspecified part of limb Status: Acute (3) Acute kidney injury superimposed on chronic kidney disease ICD Code: N17.9 - Acute kidney failure, unspecified; N18.9 - Chronic kidney disease, unspecified Status: Acute Assessment and Plan Acute right lower extremity cellulitis on chronic bilateral lymphedema/ Sepsis The patient has significant venous stasis and has multiple nondraining skin ulcers. Reports outpatient wound culture with MRSA. Has leukocytosis and was tachycardic. Previous cultures from 2011 showed pansensitive MSSA and pseudomonas. Current cultures growing staph aureus, group A beta hemolytic strep , Providencia Stuartii and Proteus Mirabilis. Doppler negative for DVT. Currently being followed by infectious disease and podiatry. Discussed with Dr. Chicas, if no osteomyelitis is found we could consider trial of oral antibiotics. BLE cellulitis w/ lymphedema - improving - wound care w/ dressing changes. - appreciate ID recs, continue Zyvox and Rocephin. - pain control with a bowel regimen. - elevate legs Right foot pain, rule out acute gout versus underlying infectious source - No significant improvement with colchicine trial yesterday (with possible gout as etiology) - Possible osteomyelitis as a new problem, podiatry wanted further evaluation with MRI of the right ankle prior to consideration for biopsy to rule out osteomyelitis. Chronic kidney disease stage III, -will need to monitor closely due to contrast given her imaging tests, repeat BUN/creatinine in the morning, IVF hydration given today Hypertension, essential- labile blood pressures - continue home lisinopril, spironolactone and Lasix DVT Prophylaxis- heparin Perla Grayson MD Aug 16, 2017 11:33
[2017-08-16] MEDS ORDERED: SODIUM CHLOR 0.9% 1000 ML INJ 1,000 ML IV SCH (11:45)
--- NOTE | 2017-08-16 11:45 | RADRPT ---
EXAM DATE/TIME: 08/16/2017 10:56 [facility] COMPARISON: MRI ANKLE LEFT W & W/O CONTRAST, August 15, 2017, 20:19. WBC SPECT CERETEC, August 14, 2017, 12:22 . INDICATIONS : Abscess. CONTRAST: 26 cc Omniscan (gadodiamide) IV MEDICAL HISTORY : Carcinoma, prostate. SURGICAL HISTORY : Fusion, lumbar. Appendectomy. Left knee sx. ENCOUNTER: Initial ACUITY: 1 week PAIN SCORE: 4/10 LOCATION: Right ankle region. TECHNIQUE: Multiplanar, multisequence MRI examination was performed without contrast and after the intravenous a dministration of gadolinium. FINDINGS: There are cellulitic changes in the soft tissues around the ankle. No evidence of significant focal f luid collection to suggest abscess which could be drained or sampled. The bony elements are benign in appearance without findings to suggest osteomyelitis at the ankle. The periarticular tendons and lig aments are intact. There is no significant joint effusion. CONCLUSION: No focal drainable collection about the right ankle Quintin Cerna MD on August 16, 2017 at 11:36 Board Certified Radiologist. This report was verified electronically.
[2017-08-16 12:00] VITALS: BP 176/79; PULSE 80; RESP 18; TEMP 97.8; O2SAT 95
[2017-08-16] MEDS: LINEZOLID 600 MG PREMIX 300 ML IV SCH ×2 (12:37→20:14)
[2017-08-16] MEDS: SPIRONOLACTONE 25 MG TAB PO SCH (12:38)
[2017-08-16] MEDS: SODIUM CHLORIDE 0.9% FLUSH 10 ML FLUSH IV FLUSH SCH ×2 (12:38→20:14)
[2017-08-16] MEDS: DOCUSATE SODIUM 50 MG/SENNA 8.6 MG TAB PO SCH ×2 (12:39→20:13)
[2017-08-16] MEDS: FUROSEMIDE 40 MG TAB PO SCH (12:39)
[2017-08-16] MEDS: guaiFENesin E.R. 600 MG TAB PO SCH ×2 (12:39→20:13)
[2017-08-16] MEDS: HEPARIN SODIUM - SQ 10,000 UNITS/ML VIAL SQ SCH ×2 (12:40→20:14)
[2017-08-16] MEDS: LISINOPRIL 10 MG TAB PO SCH (12:40)
[2017-08-16 16:00] VITALS: BP 144/74; PULSE 91; RESP 18; TEMP 97.7; O2SAT 94
[2017-08-16] MEDS: cefTRIAXone INJ 1,000 MG in SODIUM CHLORIDE 0.9% INJ 100 ML IV SCH (16:00)
[2017-08-16 20:00] VITALS: BP 146/70; PULSE 82; RESP 18; TEMP 97.6; O2SAT 96
--- NOTE | 2017-08-16 20:38 | PD.POD ---
Subjective Podiatric Problems Chronic bilateral lower extremity ulcerations R foot gout Possible osteomyelitis Past Med/Surg/Social History Social History Smoking Status: Former Smoker Objective Vital Signs Vital Signs Date Time Temp Pulse Resp B/P (MAP) Pulse Ox O2 Delivery O2 Flow Rate FiO2 08/16/17 16:00 97.7 91 18 144/74 (97) 94 08/16/17 16:00 95 Room Air 08/16/17 12:00 97.8 80 18 176/79 (111) 95 08/16/17 07:55 97.8 83 18 155/69 (97) 96 08/16/17 06:00 98.7 90 17 141/69 (93) 94 08/16/17 04:00 Room Air 08/16/17 00:30 98.4 90 18 150/67 (94) 98 08/16/17 00:00 Room Air 08/15/17 21:00 97.8 98 18 164/79 (107) 97 Coded Allergies: No Known Allergies (Unverified , 08/05/17) Other Results Last 72 hours Impressions Ankle MRI 08/16/17 0000 Signed Impressions: Service Date/Time: August 10:56 - CONCLUSION: No focal drainable collection about the right ankle Quintin Cerna MD Foot MRI 08/15/17 0000 Signed Impressions: Service Date/Time: Tuesday, August 15, 2017 20:19 - CONCLUSION: 1. No abscess or convincing evidence of osteomyelitis of the left midfoot or forefoot. 2. Hallux valgus with degenerative changes of the first metatarsophalangeal joint and sesamoids. Nonacute appearing and probably noninfectious subcortical cystic change/erosion medially of the first metatarsal head, probably degenerative. Chronic gout would be in the differential. Please see above. 3. Central predominant Lisfranc osteoarthritis. Quintin Gonzalez MD Ankle MRI 08/15/17 0000 Signed Impressions: Service Date/Time: Tuesday, August 15, 2017 20:19 - CONCLUSION: 1. No abscess or evidence of osteomyelitis of the left ankle or hindfoot. 2. Multifocal tendinopathy as above, mild to moderate of tibialis anterior was longitudinal splitting and mild of tibialis posterior and the peroneal tendons. 3. Mild proximal plantar fasciitis. 4. Mild to moderate distal and insertional tendinosis with enthesopathic changes and reactive marrow edema of Achilles. 5. Generalized subcutaneous edema, nonspecific. No deep ulceration demonstrated. No organized or drainable fluid. Quintin Gonzalez MD Physical Exam Remarks unchanged. No wound R foot. Reduced pain to R 1st MTP joint. No wound history per patient. No wound history to L midfoot/rearfoot area, as well. Assessment & Plan A/P Chronic bilateral lower extremity ulcerations R foot gout Possible osteomyelitis Previously discussed with radiologist via telephone the findings of Ceretec scan. He suggested increased caution and had same concerns about contamination with biopsy in a site with no history suggesting osteomyelitis. Per his recommendation, I ordered MRI of L ankle and foot to compare with R foot, since the Ceretec scan actually lit up more on the L hindfoot than it did on the R foot, and there has not been any reason for concern in this area up to this moment. After reviewing MRI L ankle/foot and no evidence of osteomyelitis, in spite of increased signal apparent with Ceretec, as well as no wound history either there on L hindfoot or R 1st MTP joint, I do not agree that benefits outweigh risks at this time to perform bone biopsy. Recommend continuing to monitor for any changes and continue to treat leg wounds as source of infection. Re-consult if new issues arise Colin Marie DPM Aug 16, 2017 20:38
[2017-08-17] VITALS: BP 155/73; PULSE 90; RESP 21; TEMP 97.8; O2SAT 96
[2017-08-17 04:00] VITALS: BP 157/74; PULSE 88; RESP 23; TEMP 97.6; O2SAT 95
[2017-08-17] MEDS: ACETAMINOPHEN/HYDROcodone 325 MG/7.5 MG TAB PO PRN ×2 (05:02→09:36)
[2017-08-17 07:27] LABS: BICARBONATE 30.6 MEQ/L (21.0-32.0)
[2017-08-17 08:00] VITALS: BP 155/74; PULSE 87; RESP 20; TEMP 97.9; O2SAT 95
[2017-08-17] MEDS: DOCUSATE SODIUM 50 MG/SENNA 8.6 MG TAB PO SCH (09:00)
[2017-08-17] MEDS: LINEZOLID 600 MG PREMIX 300 ML IV SCH (09:35)
[2017-08-17] MEDS: SPIRONOLACTONE 25 MG TAB PO SCH (09:36)
[2017-08-17] MEDS: guaiFENesin E.R. 600 MG TAB PO SCH (09:36)
[2017-08-17] MEDS: HEPARIN SODIUM - SQ 10,000 UNITS/ML VIAL SQ SCH (09:36)
[2017-08-17] MEDS: FUROSEMIDE 40 MG TAB PO SCH (09:36)
[2017-08-17] MEDS: LISINOPRIL 10 MG TAB PO SCH (09:36)
[2017-08-17] MEDS: SODIUM CHLORIDE 0.9% FLUSH 10 ML FLUSH IV FLUSH SCH (09:37)
[2017-08-17] MEDS ORDERED: POTASSIUM CHLORIDE 20 MEQ CONTROLLED RELEASE TAB PO ONE (09:45)
[2017-08-17 12:00] VITALS: BP 143/72; PULSE 99; RESP 20; TEMP 97.8; O2SAT 95
--- NOTE | 2017-08-17 12:03 | HHI.FF ---
Face to Face Verification Diagnosis: (1) Recurrent cellulitis of lower extremity (2) Venous stasis dermatitis of both lower extremities Physical Therapy Order: Evaluate and Treat Home Health Nursing Order: Wound care and dressing changes I have seen patient Gary MarksJr on 08/17/17. My clinical findings support the need for the requested home health care services because: Ltd mobility - disease progression I certify that my clinical findings support that this patient is homebound because: Unsteady gait/balance Perla Grayson MD Aug 17, 2017 12:03
--- NOTE | 2017-08-17 12:42 | HHI.PR ---
Subjective Remarks Pain control. Would prefer to go home with home health care versus [facility] facility. Objective Vitals Vital Signs Date Time Temp Pulse Resp B/P (MAP) Pulse Ox O2 Delivery O2 Flow Rate FiO2 08/17/17 08:00 97.9 87 20 155/74 (101) 95 08/17/17 04:00 97.6 88 23 157/74 (101) 95 08/17/17 04:00 Room Air 08/17/17 00:00 97.8 90 21 155/73 (100) 96 08/17/17 00:00 Room Air 08/16/17 21:58 Room Air 08/16/17 20:00 97.6 82 18 146/70 (95) 96 08/16/17 16:00 97.7 91 18 144/74 (97) 94 08/16/17 16:00 95 Room Air I/O 08/16/17 08/16/17 08/16/17 08/17/17 08/17/17 08/17/17 07:00 15:00 23:00 07:00 15:00 23:00 Intake Total 475 ml 1260 ml 1480 ml Output Total 1200 ml 600 ml Balance -725 ml 1260 ml 880 ml Intake Oral 475 ml 960 ml 480 ml IV Total 300 ml 1000 ml Output Urine Total 1200 ml 600 ml # Voids 3 # Bowel Movements 1 1 1 Result Diagram: 08/15/17 0345 08/17/17 0545 Other Results Microbiology Date/Time Source Procedure Growth Status 08/05/17 23:00 Blood Peripheral Aerobic Blood Culture - Final NO GROWTH IN 5 DAYS Complete 08/05/17 23:00 Blood Peripheral Anaerobic Blood Culture - Final NO GROWTH IN 5 DAYS Complete 08/05/17 22:50 Wound Skin Gram Stain - Final Complete 08/05/17 22:50 Wound Culture - Final S. Aureus Mrsa Group A Beta Strep Providencia Stuartii Proteus Mirabilis Complete Imaging Last 48 hours Impressions Ankle MRI 08/16/17 0000 Signed Impressions: Service Date/Time: August 10:56 - CONCLUSION: No focal drainable collection about the right ankle Quintin Cerna MD Objective Remarks GENERAL: This is a well-nourished, well-developed patient, in no apparent distress. CARDIOVASCULAR: Regular rate and rhythm RESPIRATORY: Clear to auscultation. Breath sounds equal bilaterally. No wheezes , rales, or rhonchi. GASTROINTESTINAL: Abdomen soft, non-tender, nondistended. Normal active bowel sounds MUSCULOSKELETAL: Extremities without clubbing, cyanosis, to pull plus edema, bilateral bandage distal leg NEURO: Alert & Oriented x4 to person, place, time, situation. Moves all ext x4 Procedures None A/P Problem List: (1) Venous stasis dermatitis of both lower extremities ICD Code: I87.2 - Venous insufficiency (chronic) (peripheral) Status: Chronic (2) Recurrent cellulitis of lower extremity ICD Code: L03.119 - Cellulitis of unspecified part of limb Status: Acute (3) Acute kidney injury superimposed on chronic kidney disease ICD Code: N17.9 - Acute kidney failure, unspecified; N18.9 - Chronic kidney disease, unspecified Status: Acute Assessment and Plan Acute right lower extremity cellulitis on chronic bilateral lymphedema/ Sepsis The patient has significant venous stasis and has multiple nondraining skin ulcers. Reports outpatient wound culture with MRSA. Has leukocytosis and was tachycardic. Previous cultures from 2011 showed pansensitive MSSA and pseudomonas. Current cultures growing staph aureus, group A beta hemolytic strep , Providencia Stuartii and Proteus Mirabilis. Doppler negative for DVT. Currently being followed by infectious disease and podiatry. Discussed with Dr. Chicas, there is no signs of osteomyelitis on imaging and also discussed with telephone ad taker felt no biopsy or drainage is indicated at this time. Dr. Chicas has recommended discharge on oral antibiotics Levaquin and doxycycline for 10 more days. BLE cellulitis w/ lymphedema - improving - wound care w/ dressing changes. We'll arrange for home health care for care and dressing changes - appreciate ID recs, currently on Zyvox and Rocephin. Will switch over to oral Levaquin and doxycycline for 10 more days per infectious disease - pain control with a bowel regimen. - elevate legs Right foot pain, rule out acute gout versus underlying infectious source - No significant improvement with colchicine trial yesterday hours gout is still a possibility - MRI showed no acute osteomyelitis. Chronic kidney disease stage III, -stable with IV fluid hydration after contrast imaging tests. Hypertension, essential- labile blood pressures - continue home lisinopril, spironolactone and Lasix DVT Prophylaxis- heparin Discharge Planning Discharge to home with home health care with follow-up Perla Grayson MD Aug 17, 2017 12:42
[2017-08-17] MEDS ORDERED: DOXY100C PO (12:47)
[2017-08-17] MEDS ORDERED: LEVA500T20 PO (12:47)
--- NOTE | 2017-08-17 12:55 | HHI.DS ---
Discharge Summary Admission Date Aug 07, 2017 at 09:22 Discharge Date: Aug 17, 2017 Admitting Diagnosis Cellulitis with infected skin ulcers (1) Sepsis ICD Code: A41.9 - Sepsis, unspecified organism Diagnosis: Principal Status: Resolved (2) Recurrent cellulitis of lower extremity ICD Code: L03.119 - Cellulitis of unspecified part of limb Status: Acute (3) Venous stasis dermatitis of both lower extremities ICD Code: I87.2 - Venous insufficiency (chronic) (peripheral) Status: Chronic (4) Acute kidney injury superimposed on chronic kidney disease ICD Code: N17.9 - Acute kidney failure, unspecified; N18.9 - Chronic kidney disease, unspecified Status: Acute Procedures None Brief History - From Admission 82-year-old male with a medical history significant for osteoarthritis, prostate cancer, hypertension, chronic lower extremity edema presents with complaint of infection involving bilateral lower extremities. Patient is a very poor historian and not able to elaborate on the history. He reports he normally gets these infections once a year. He does not follow with a primary care physician. He reports that they just have been getting worse. He is experiencing significant pain with walking. There has been erythema and warmth. Subjective fevers at home. He states his legs have been swelling intermittently. Patient denies shortness of breath or chest pain. CBC/BMP: 08/15/17 0345 08/17/17 0545 Significant Findings Laboratory Tests Test 08/14/17 18:27 08/15/17 03:45 08/17/17 05:45 Creatinine 1.31 MG/DL (0.60-1.30) Total Protein 8.6 GM/DL (6.4-8.2) Albumin 1.8 GM/DL (3.4-5.0) Sodium Level 134 MEQ/L (136-145) C-Reactive Protein 24.00 MG/DL (0.00-0.30) Red Blood Count 3.76 MIL/MM3 (4.50-5.90) Hemoglobin 10.7 GM/DL (13.0-17.0) Hematocrit 31.9 % (39.0-51.0) Red Cell Distribution Width 17.5 % (11.6-17.2) Neutrophils % (Manual) 92 % (16-70) Lymphocytes % 3 % (9-44) Neutrophils # (Manual) 10.1 TH/MM3 (1.8-7.7) Toxic Vacuolation PRESENT (NONE SEEN) Calcium Level 8.4 MG/DL (8.5-10.1) Potassium Level 3.0 MEQ/L (3.5-5.1) Estimat Glomerular Filtration Rate 66 ML/MIN (>89) Imaging Last Impressions Ankle MRI 08/16/17 Signed Impressions: Service Date/Time: August 10:56 - CONCLUSION: No focal drainable collection about the right ankle Quintin Cerna MD Foot MRI 08/15/17 Signed Impressions: Service Date/Time: Tuesday, August 15, 2017 20:19 - CONCLUSION: 1. No abscess or convincing evidence of osteomyelitis of the left midfoot or forefoot. 2. Hallux valgus with degenerative changes of the first metatarsophalangeal joint and sesamoids. Nonacute appearing and probably noninfectious subcortical cystic change/erosion medially of the first metatarsal head, probably degenerative. Chronic gout would be in the differential. Please see above. 3. Central predominant Lisfranc osteoarthritis. Quintin Gonzalez MD Tumor Localization 08/13/17 Signed Impressions: Service Date/Time: Monday, August 14, 2017 12:22 - CONCLUSION: 1. Osteomyelitis involving the first metatarsal head and proximal phalanx on the right Tay Rendon MD Foot X-Ray 08/13/17 Signed Impressions: Service Date/Time: Sunday, August 13, 2017 17:42 - CONCLUSION: Erosive change at the first MTP joint and to lesser degree the metatarsal head region most suggestive of gout. There is diffuse soft tissue swelling. Quintin Olmos MD Lower Extremity Ultrasound 08/06/17 Signed Impressions: Service Date/Time: Sunday, August 06, 2017 17:41 - CONCLUSION: No DVT is identified within the right lower extremity. Quintin Bro MD Chest X-Ray 08/05/17 138 Signed Impressions: Service Date/Time: Saturday, August 05, 2017 22:58 - CONCLUSION: 1. Minimal basilar atelectasis. Theodore Rivera MD PE at Discharge GENERAL: This is a well-nourished, well-developed patient, in no apparent distress. CARDIOVASCULAR: Regular rate and rhythm RESPIRATORY: Clear to auscultation. Breath sounds equal bilaterally. No wheezes , rales, or rhonchi. GASTROINTESTINAL: Abdomen soft, non-tender, nondistended. Normal active bowel sounds MUSCULOSKELETAL: Extremities without clubbing, cyanosis, to pull plus edema, bilateral bandage distal leg NEURO: Alert & Oriented x4 to person, place, time, situation. Moves all ext x4 Hospital Course These are the medical issues addressed during this hospitalization: Acute right lower extremity cellulitis on chronic bilateral lymphedema/ with presenting Sepsis on admission due to white blood count elevation, tach tachypnea and tachycardia with source of infection of the bilateral lower extremity infected wounds. The patient has significant venous stasis and has multiple nondraining skin ulcers. Reports outpatient wound culture with MRSA. Has leukocytosis and was tachycardic. Previous cultures from 2011 showed pansensitive MSSA and pseudomonas. Current cultures growing staph aureus, group A beta hemolytic strep , Providencia Stuartii and Proteus Mirabilis. Doppler negative for DVT. Currently being followed by infectious disease and podiatry during the hospitalization and placement IV Rocephin, IV Zyvox. Discussed with Dr. Chicas, there is no signs of osteomyelitis on imaging workup and also discussed with bunch trimmer mold felt no biopsy or drainage is indicated at this time. Dr. Chicas has recommended discharge on oral antibiotics Levaquin and doxycycline for 10 more days. BLE cellulitis w/ lymphedema - improving - wound care w/ dressing changes. We'll arrange for home health care for care and dressing changes we'll also make a referral to outpatient wound clinic. - pain control with a bowel regimen. - elevate legs Right foot pain, rule out acute gout versus underlying infectious source - No significant improvement with colchicine trial yesterday hours gout is still a possibility - MRI showed no acute osteomyelitis. Chronic kidney disease stage III, -stable with IV fluid hydration after contrast imaging tests. Hypertension, essential- labile blood pressures during hospitalization - continue home lisinopril, spironolactone and Lasix Pt Condition on Discharge: Good Discharge Disposition: Disch w/ Home Health Serv Discharge Time: <= 30 minutes Discharge Instructions DIET: Follow Instructions for: Heart Healthy Diet Activities you can perform: Regular-No Restrictions Follow up Referrals: PCP Follow-up Wound Care Clinic @ [facility] New Medications: Doxycycline Hyclate (Doxycycline Hyclate) 100 Mg Cap 100 MG PO BID for Infection, #20 CAP 0 Refills Levofloxacin (Levaquin) 500 Mg Tablet 500 MG PO DAILY for Infection for 10 Days, #10 TAB 0 Refills Continued Medications: Furosemide (Furosemide) 40 Mg Tab 40 MG PO DAILY, #30 TAB 0 Refills Lisinopril (Lisinopril) 10 Mg Tab 10 MG PO DAILY, #30 TAB 0 Refills Spironolactone (Aldactone) 25 Mg Tab 25 MG PO DAILY, #30 TAB 0 Refills Additional Information Home health care for wound care set up. Perla Grayson MD Aug 17, 2017 12:55
[2017-08-17] MEDS: cefTRIAXone INJ 1,000 MG in SODIUM CHLORIDE 0.9% INJ 100 ML IV SCH (14:53)
== END 2017-08-17 16:42 | disposition home health service (06) | DRG 872 ==
LOC: NEPE 21:27 → NEDA 08-06 00:44 → UNDOADMOB 08-06 00:44 → INTOOBSV 08-06 00:44 → NEDA 08-06 01:12 → NEPFCDU 08-06 03:22 → NEDA 08-06 03:22 → OBSVTOIN 08-06 13:02 → N04B 08-06 19:14 → NEPFCDU 08-06 19:14 → INTOOBSV 08-07 09:22 → OBSVTOIN 08-07 09:22 → UNDODISOB 08-17 16:42
PROVIDERS: ADMIT Hospitalist; ATTEND Hospitalist
DX: A41.9 Sepsis, unspecified organism (principal); N17.9 Acute kidney failure, unspecified; L03.115 Cellulitis of right lower limb; E66.01 Morbid (severe) obesity due to excess calories; J44.9 Chronic obstructive pulmonary disease, unspecified; I83.018 Varicose veins of right lower extremity with ulcer other part of lower leg; L03.116 Cellulitis of left lower limb; I87.2 Venous insufficiency (chronic) (peripheral); I12.9 Hypertensive chronic kidney disease with stage 1 through stage 4 chronic kidney disease, or unspecified chronic kidney disease; N18.3 Chronic kidney disease, stage 3 (moderate); R19.5 Other fecal abnormalities; I45.10 Unspecified right bundle-branch block; R79.82 Elevated C-reactive protein (CRP); Z85.46 Personal history of malignant neoplasm of prostate; Z96.652 Presence of left artificial knee joint; M19.90 Unspecified osteoarthritis, unspecified site; I87.8 Other specified disorders of veins; I83.028 Varicose veins of left lower extremity with ulcer other part of lower leg; M10.9 Gout, unspecified; R73.9 Hyperglycemia, unspecified; I89.0 Lymphedema, not elsewhere classified; Z87.891 Personal history of nicotine dependence; Z80.0 Family history of malignant neoplasm of digestive organs; Z80.1 Family history of malignant neoplasm of trachea, bronchus and lung; Z68.37 Body mass index [BMI] 37.0-37.9, adult
CPT/HCPCS: 71010; 73630; 73718; 73720; 73723; 76937; 78807; 78999; 80048; 80053; 80202; 81001; 82550; 82552; 83036; 83605; 83690; 83735; 83880; 84484; 84550; 85007; 85027; 85610; 85730; 86140; 86403; 87040; 87070; 87077; 87147; 87186; 87205; 93005; 93971; 94150; 94640; 94664; A9569; A9579; J0696; J1644; J2020; J2270; J2405; J2543; J3370; J7030; J7040; J7050; L3260